=== PATIENT | male | born 1940 | race Caucasian/White ===

== ENCOUNTER → 2023-05-22 11:04 | Outpatient (CLI) | payer MEDICARE, OTHER, SELFPAY ==
--- NOTE | 2023-05-22 11:06 | DI.RAD.S_ITS ---
PROCEDURE: XR CHEST 2V INDICATIONS: Cough TECHNIQUE: 2 views of the chest were acquired. COMPARISON: [facility], CHEST 2 VIEW, 06/28/2015, 18:17. [facility], CHEST 1 VIEW, 09/17/2014, 21:52. FINDINGS: Surgical changes and devices: Clavicle fixation hardware Lungs and pleura: Lungs are clear. No pleural effusions or pneumothorax. Mediastinum: Visible on lateral projection only is a ovoid opacity projecting over the lower thoracic spine.. Heart size is normal. Bones and chest wall: No suspicious bony abnormalities. Soft tissues appear unremarkable. IMPRESSION: No acute cardiopulmonary process. Redemonstration of ovoid opacity projecting over the lower thoracic spine, similar appearance to prior. Dictated by: Darshan Freire M.D. on 05/22/2023 at 12:55 Approved by: Darshan Freire M.D. on 05/22/2023 at 12:58
== END ==
PROVIDERS: Referring Provider Nurse Practitioner Family; Visit Provider Nurse Practitioner Family
DX: R05.9 Cough, unspecified (principal)
CPT/HCPCS: 71046

== ENCOUNTER → 2023-05-22 11:06 | Outpatient (CLI) | payer MEDICARE, OTHER, SELFPAY ==
[2023-05-22 11:54] LABS: COVID-19 CEPHEID 4-PLEX PCR POSITIVE (Negative); Influenza A - CEPHEID Flu A NEGATIVE (NEGATIVE); Influenza B - CEPHEID Flu B NEGATIVE (NEGATIVE); Respiratory Syncytial Virus Negative (Negative)
== END ==
PROVIDERS: Visit Provider Nurse Practitioner Family
DX: R05.9 Cough, unspecified (principal)
CPT/HCPCS: 0241U; 71046; 87070

== ENCOUNTER 2024-03-06 12:14 | Emergency (ER) | payer MEDICARE, OTHER, SELFPAY ==
[2024-03-06] VITALS (21 sets, daily range): BP systolic 148–198; BP diastolic 72–94; PULSE 39–49; RESP 9–21; TEMP 36.2; O2SAT 91–98; BMI 26.4
--- NOTE | 2024-03-06 12:27 | DI.CT.S_ITS ---
PROCEDURE: CT HEAD/BRAIN WO CON INDICATIONS: double vision yesterday,no sx today,not TPA candidate TECHNIQUE: Noncontrast 4.5 mm thick angled axial sections acquired from the foramen magnum to the vertex, with coronal and sagittal reformats. For radiation dose reduction, the following was used: automated exposure control, adjustment of mA and/or kV according to patient size. COMPARISON: None. FINDINGS: Image quality: Diagnostic. CSF spaces: Basal cisterns are patent. No extra-axial fluid collections. The ventricles are symmetric in size and shape. Brain: No intracranial bleeds or masses. There is cerebral volume loss for age, with resultant ventricular and sulcal prominence. There are periventricular and deep white matter chronic small vessel ischemic changes. There is intracranial internal carotid artery atherosclerosis. Skull and face: Calvarium and visualized facial bones appear intact, without suspicious lesions. Sinuses: Visualized sinuses and mastoids are clear. IMPRESSION: No acute intracranial pathology. Dictated by: Alex Agarwal M.D. on 03/06/2024 at 13:31 Approved by: Alex Agarwal M.D. on 03/06/2024 at 13:31
--- NOTE | 2024-03-06 12:27 | DI.CT.S_ITS ---
PROCEDURE: CT ANGIO HEAD AND NECK INDICATIONS: double vision yesterday,no sx today,not TPA candidate TECHNIQUE: After the administration of intravenous contrast, 1 mm thick sections acquired from the aortic arch through the [place]. 3-dimensional vedfbav-wvnrnxpuc-nburgtfxqn (MIP) and/or volume rendering reformats were acquired of the central intracranial vasculature and neck separately. For radiation dose reduction, the following was used: automated exposure control, adjustment of mA and/or kV according to patient size. COMPARISON: [facility], CT, CT ANGIO HEAD AND NECK, 06/16/2022, 12:03. [facility], CT, CT HEAD/BRAIN WO CON, 03/06/2024, 12:31. FINDINGS: Image quality: Diagnostic. BRAIN: CSF spaces: Ventricles are normal in size and shape. Basal cisterns are patent. No extra-axial fluid collections. Brain: No significant abnormality of the brain can be seen. Skull and face: Calvarium and facial bones appear intact, without suspicious lesions. Orbits appear normal. Sinuses: Sinuses and mastoids are clear. HEAD CT ANGIOGRAPHY: Anterior circulation: Intracranial internal carotid arteries are normal in size and flow. The flow within the paired anterior cerebral arteries is normal and symmetric. The flow within the middle cerebral arteries is normal and symmetric. The anterior communicating artery is seen. No aneurysms are seen. Posterior circulation: Somewhat diminutive right vertebral artery and dominant left vertebral artery as before. They join to give rise to a normal caliber basilar artery. Flow within the posterior cerebral arteries is normal and symmetric. No aneurysms are seen. NECK CT ANGIOGRAPHY: Carotid system: Variant arch anatomy in which there is aberrant origin of the right subclavian. There is also independent origin left vertebral artery arch. Great vessel origins are all widely patent. The origins of the common carotid arteries appear patent. The common carotid arteries demonstrate normal caliber and courses. Soft plaque results in a mild stenosis the distal right common carotid artery, not flow limiting. There is is a severe proximal right external iliac artery stenosis. The right internal carotid artery is patent. There is a densely calcified carotid bifurcation with a moderate to severe stenosis just proximal to the origin the left internal carotid, approximately 50%. There is no significant right internal carotid artery stenosis. Posterior circulation: Somewhat diminutive right vertebral artery and dominant left vertebral artery as before. They join to give rise to a normal caliber basilar artery. Soft tissues: Visualized neck soft tissues demonstrate no suspicious abnormalities. Bones: No suspicious bony lesions. Diffuse cervical spondylitic change. Canal stenosis C4-C5. Multilevel bony foraminal narrowing. IMPRESSION: No significant intracranial arterial abnormality is seen. 60% left carotid bifurcations stenosis. Mild distal right common carotid artery stenosis secondary to soft plaque. Diffuse cervical spondylosis with canal stenosis. 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 Any quantitative measurements of stenosis were performed using NASCET criteria. Dictated by: Matt Siegel M.D. on 03/06/2024 at 13:22 Approved by: Matt Siegel M.D. on 03/06/2024 at 13:28
--- NOTE | 2024-03-06 12:46 | PC.NURSE ---
States he was driving when he suddenly had double vision; pt went to eye doctor today who stated they believe he has a nerve issue but needs to be seen in ER to rule out stroke/mini stroke
[2024-03-06 12:54] LABS: Add Manual Diff / Slide Review NO; Basophils Absolute Auto 0 /uL (0-100); Basophils Percent Auto 0.4 % (0-2); Eosinophils Absolute Auto 100 /uL (0-450); Hematocrit 47.2 % (41-53); Hemoglobin 16.2 g/dL (13.5-17.5); Lymphocytes Absolute Auto 2000 /uL (1100-4500); Lymphocytes Percent Auto 29.1 % (25-40); Mean Corpuscular HGB Conc 34.3 % (30-36); Mean Corpuscular Hemoglobin 32.1 PG (26-34); Mean Corpuscular Volume 93.5 fL (80-100); Monocytes Absolute Auto 600 /uL (0-900); Monocytes Percent Auto 9.1 % (3-14); Neutrophils Absolute Auto 4200 /uL (1500-7000); Neutrophils Percent Auto 60.4 % (50-75); Platelet Count 211 X10^3/uL (150-400); Red Blood Cell Count 5.05 X10^6/uL (4.5-5.9); Red Cell Distribution Width 13.4 % (11.6-14.8)
[2024-03-06 12:56] LABS: INR 1.1 (0.9-1.3); Prothrombin Time 12.1 SECONDS (9.4-12.5)
[2024-03-06 12:58] LABS: PTT Partial Thromboplastin Tim 36 SECONDS (25.1-36.5)
[2024-03-06 13:00] LABS: Alanine Aminotransferase 26 IU/L (<50); Albumin 4.2 g/dL (3.5-5.0); Albumin Globulin Ratio 1.4 (1.0-2.8); Alkaline Phosphatase 90 U/L (38-126); Aspartate Aminotransferase 36 IU/L (17-59); BUN Creatinine Ratio 16.9 (6-22); Blood Urea Nitrogen 15 mg/dL (9-20); Calcium 9.2 mg/dL (8.4-10.2); Carbon Dioxide 23 mmol/L (22-32); Chloride 108 mmol/L (98-107); Creatine Kinase 191 U/L (55-170); Estimated Glomerular Filt Rate > 60 mL/min (>60); Globulin 3.1 g/dL (1.7-4.1); Glucose 96 mg/dL (80-110); HEMOLYSIS < 15 (0-50); Potassium 4.2 mmol/L (3.4-5.1); Sodium 137 mmol/L (137-145); Total Protein 7.3 g/dL (6.3-8.2)
[2024-03-06 13:12] LABS: Troponin I < 0.012 ng/mL (0.01-0.034)
--- NOTE | 2024-03-06 13:28 | EKG_ITS ---
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
--- NOTE | 2024-03-06 14:13 | ED.NEUROSD ---
HPI - Neuro Symptoms/Deficit General Chief Complaint: Neuro Symptoms/Deficit Stated Complaint: sent by [facility], r/o aneurism Time Seen by Provider: 03/06/24 14:13 Source: patient Mode of arrival: Ambulatory History of Present Illness HPI Narrative: 83-year-old male complains of double vision episode onset at rest 5:30 p.m. yesterday, lasted about 3 hours and then resolved without specific treatments or maneuvers. No associated headache. No weakness to face arm or leg. No numbness to face arm or leg. He went to eye clinic today, was referred for stroke workup imaging here. Denies chest pain. Denies changes in medications. On Anticoagulants: No Related Data Previous Rx's Medication Instructions Recorded benzonatate 200 mg capsule 200 mg PO BID PRN cough #28 caps 05/22/23 fluticasone propionate 50 1 spray intranasal Q12H #16 grams 05/22/23 mcg/actuation nasal spray,suspension (Flonase Allergy Relief) Allergies Allergy/AdvReac Type Severity Reaction Status Date / Time adhesive tape [ADHESIVE TAPE] Allergy Mild RASH---PAPER Verified 03/06/24 12:17 OR SILK TAPE IS OK squash [SQUASH] Allergy Mild RASH Verified 03/06/24 12:17 Review of Systems Hematologic/Lymphatic On Anticoagulants: No Patient History Social History Smoking Status: Unknown if ever smoked Smoking Status: Unknown if ever smoked Exam Narrative Exam Narrative: GENERAL: Well-developed patient, in mild distress. HEAD: Atraumatic. Normocephalic. EYES: Pupils equal round and reactive. Extraocular motions intact. No scleral icterus. No injection or drainage. ENT: Nose without bleeding, purulent drainage. Throat without erythema, tonsillar hypertrophy or exudate. Airway patent. NECK: Trachea midline. Non tender CARDIOVASCULAR: Regular rate and rhythm without murmurs, gallops, or rubs. RESPIRATORY: Clear to auscultation. Breath sounds equal bilaterally. No wheezes, rales, or rhonchi. GASTROINTESTINAL: Abdomen soft, non-tender, nondistended. EXTREMITIES: No edema or joint tenderness. BACK: Nontender without deformity or crepitance. No flank tenderness. NEURO: AOx3. Motor functions 5/5 bilateral upper extremities and bilateral lower extremities. Cranial nerve examination unremarkable including confrontational nayak, no diplopia on lateral or upward gaze testing. Jdnwdy-gy-[id number] testing normal. Light touch sensation intact face arms legs. SKIN: No rash or erythema of visible areas Initial Vital Signs Initial Vital Signs: Vital Signs Temperature 97.2 F L 03/06/24 12:17 Pulse Rate 49 L 03/06/24 12:17 Respiratory Rate 14 03/06/24 12:17 Blood Pressure 177/80 H 03/06/24 12:17 Pulse Oximetry 96 03/06/24 12:17 Oxygen Delivery Method Room Air 03/06/24 12:17 Course Orders Ordered: ED Orders 03/06/24 12:27 CT angio head and neck Stat CT head/brain wo con Stat EKG-12 Lead Stat 03/06/24 12:36 Complete Blood Count AUTO DIFF Stat Comprehensive Metabolic Panel Stat PTT Partial Thromboplastin Oliver Stat Prothrombin Time INR Stat Troponin & CK Cardiac Panel Stat 03/06/24 15:05 MR head/brain wo con Stat 03/06/24 16:10 Urinalysis and Microscopic Stat Vital Signs Vital signs: Vital Signs - 8 hr 03/06/24 12:17 03/06/24 12:37 03/06/24 12:39 Temperature 97.2 F L Pulse Rate 49 L 43 L 42 L Respiratory Rate 14 Blood Pressure 177/80 H Pulse Oximetry 96 91 98 Oxygen Delivery Method Room Air 03/06/24 12:39 03/06/24 12:59 03/06/24 12:59 Temperature Pulse Rate 40 L Respiratory Rate 12 Blood Pressure 162/83 H 166/80 H Pulse Oximetry 97 Oxygen Delivery Method 03/06/24 13:00 03/06/24 13:00 03/06/24 13:30 Temperature Pulse Rate 40 L Respiratory Rate Blood Pressure 155/78 H 177/87 H Pulse Oximetry 96 Oxygen Delivery Method 03/06/24 13:30 03/06/24 14:00 03/06/24 14:01 Temperature Pulse Rate 42 L 43 L 43 L Respiratory Rate 13 18 Blood Pressure Pulse Oximetry 97 97 95 Oxygen Delivery Method 03/06/24 14:01 03/06/24 14:30 03/06/24 14:31 Temperature Pulse Rate 48 L 43 L Respiratory Rate 20 Blood Pressure 174/89 H Pulse Oximetry 95 95 Oxygen Delivery Method 03/06/24 14:31 03/06/24 15:00 03/06/24 15:01 Temperature Pulse Rate 43 L 45 L Respiratory Rate 15 21 Blood Pressure 151/72 H Pulse Oximetry 96 95 Oxygen Delivery Method 03/06/24 15:01 03/06/24 15:30 03/06/24 15:31 Temperature Pulse Rate 39 L 39 L Respiratory Rate 9 L Blood Pressure 163/77 H Pulse Oximetry 96 96 Oxygen Delivery Method 03/06/24 15:31 03/06/24 16:00 03/06/24 16:00 Temperature Pulse Rate 40 L Respiratory Rate 12 Blood Pressure 162/76 H 148/81 H Pulse Oximetry 96 Oxygen Delivery Method 03/06/24 16:36 03/06/24 16:38 03/06/24 16:38 Temperature Pulse Rate 48 L 44 L Respiratory Rate 17 Blood Pressure 198/94 H Pulse Oximetry 95 Oxygen Delivery Method 03/06/24 17:00 03/06/24 17:01 03/06/24 17:01 Temperature Pulse Rate 45 L 45 L Respiratory Rate 15 21 Blood Pressure 182/84 H Pulse Oximetry 96 96 Oxygen Delivery Method 03/06/24 17:30 03/06/24 17:31 03/06/24 17:31 Temperature Pulse Rate 40 L 40 L Respiratory Rate 20 16 Blood Pressure 178/84 H Pulse Oximetry 96 96 Oxygen Delivery Method MDM - Neuro Symptoms/Deficit Lab Data Attestation: I reviewed the patient's lab results. Lab results narrative: White blood cell count 7000, hemoglobin 16.2, platelets adequate. Basic metabolic panel unremarkable. Glucose 96. Liver functions normal. Troponin negative/unmeasurable 03/06/24 12:36 03/06/24 12:36 Labs: Lab Results 03/06/24 03/06/24 Range/Units 12:36 16:10 WBC 7.0 (4.5-11.0) X10^3/uL RBC 5.05 (4.5-5.9) X10^6/uL Hgb 16.2 (13.5-17.5) g/dL Hct 47.2 (41-53) % MCV 93.5 (80-100) fL MCH 32.1 (26-34) PG MCHC 34.3 (30-36) % RDW 13.4 (11.6-14.8) % Plt Count 211 (150-400) X10^3/uL Neut % (Auto) 60.4 (50-75) % Lymph % (Auto) 29.1 (25-40) % [place] % (Auto) 9.1 (3-14) % Eos % (Auto) 1.0 L (2-4) % Baso % (Auto) 0.4 (0-2) % Neut # (Auto) 4200 (9425-1598) /uL Lymph # (Auto) 2000 (0608-2642) /uL [place] # (Auto) 600 (0-900) /uL Eos # (Auto) 100 (0-450) /uL Baso # (Auto) 0 (0-100) /uL PT 12.1 (9.4-12.5) SECONDS INR 1.1 (0.9-1.3) APTT 36 (25.1-36.5) SECONDS Sodium 137 (137-145) mmol/L Potassium 4.2 (3.4-5.1) mmol/L Chloride 108 H (98-107) mmol/L Carbon Dioxide 23 (22-32) mmol/L BUN 15 (9-20) mg/dL Creatinine 0.89 (0.66-1.25) mg/dL Estimated GFR > 60 (>60) mL/min BUN/Creatinine Ratio 16.9 (6-22) Glucose 96 (80-110) mg/dL Calcium 9.2 (8.4-10.2) mg/dL Total Bilirubin 1.0 (0.2-1.3) mg/dL AST 36 (17-59) IU/L ALT 26 (<50) IU/L Alkaline Phosphatase 90 (38-126) U/L Total Creatine Kinase 191 H (55-170) U/L Troponin I < 0.012 (0.01-0.034) ng/mL Total Protein 7.3 (6.3-8.2) g/dL Albumin 4.2 (3.5-5.0) g/dL Globulin 3.1 (1.7-4.1) g/dL Albumin/Globulin Ratio 1.4 (1.0-2.8) Urine Color Yellow Urine Appearance Clear Urine pH 7.0 (4.5-8.0) Ur Specific [place] 1.010 (1.000-1.035) Urine Protein Negative (Negative) Urine Glucose (UA) Negative (Negative) g/dL Urine Ketones Negative (NEGATIVE) Urine Occult Blood Negative (Negative) Urine Nitrate Negative (Negative) Urine Bilirubin Negative (NEGATIVE) Urine Urobilinogen 0.2 (0.2) E.U./dL Ur Leukocyte Esterase Negative (NEGATIVE) Urine RBC None seen (0-5/HPF) Urine WBC 0-1/hpf (0-5/HPF) Ur Squamous Epith Cells None seen (0-5/HPF) Urine Bacteria None seen (None) Ur Culture Indicated? Cult not indicated Vol Urine Centrifuged 10ml (spun) Imaging Data CTA - brain/neck: Radiologist's Impression: [address] [address] [address] Scan Report Signed Patient: Erasto Dewey MR#: [id number] : 1940 Acct:[id number] Age/Sex: 83 / M Date of Service: 03/06/24 Loc: ED Accession Number: [id number] Procedure: CT angio head and neck Ordering Provider: Bryce Dent MD PROCEDURE: CT ANGIO HEAD AND NECK INDICATIONS: double vision yesterday,no sx today,not TPA candidate TECHNIQUE: After the administration of intravenous contrast, 1 mm thick sections acquired from the aortic arch through the [place] of [place]. 3-dimensional eqyhond-mveagooql-ibanieuelt (MIP) and/or volume rendering reformats were acquired of the central intracranial vasculature and neck separately. For radiation dose reduction, the following was used: automated exposure control, adjustment of mA and/or kV according to patient size. COMPARISON: [facility], CT, CT ANGIO HEAD AND NECK, 06/16/2022, 12:03. [facility], CT, CT HEAD/BRAIN WO CON, 03/06/2024, 12:31. FINDINGS: Image quality: Diagnostic. BRAIN: CSF spaces: Ventricles are normal in size and shape. Basal cisterns are patent. No extra-axial fluid collections. Brain: No significant abnormality of the brain can be seen. Skull and face: Calvarium and facial bones appear intact, without suspicious lesions. Orbits appear normal. Sinuses: Sinuses and mastoids are clear. HEAD CT ANGIOGRAPHY: Anterior circulation: Intracranial internal carotid arteries are normal in size and flow. The flow within the paired anterior cerebral arteries is normal and symmetric. The flow within the middle cerebral arteries is normal and symmetric. The anterior communicating artery is seen. No aneurysms are seen. Posterior circulation: Somewhat diminutive right vertebral artery and dominant left vertebral artery as before. They join to give rise to a normal caliber basilar artery. Flow within the posterior cerebral arteries is normal and symmetric. No aneurysms are seen. NECK CT ANGIOGRAPHY: Carotid system: Variant arch anatomy in which there is aberrant origin of the right subclavian. There is also independent origin left vertebral artery arch. Great vessel origins are all widely patent. The origins of the common carotid arteries appear patent. The common carotid arteries demonstrate normal caliber and courses. Soft plaque results in a mild stenosis the distal right common carotid artery, not flow limiting. There is is a severe proximal right external iliac artery stenosis. The right internal carotid artery is patent. There is a densely calcified carotid bifurcation with a moderate to severe stenosis just proximal to the origin the left internal carotid, approximately 50%. There is no significant right internal carotid artery stenosis. Posterior circulation: Somewhat diminutive right vertebral artery and dominant left vertebral artery as before. They join to give rise to a normal caliber basilar artery. Soft tissues: Visualized neck soft tissues demonstrate no suspicious abnormalities. Bones: No suspicious bony lesions. Diffuse cervical spondylitic change. Canal stenosis C4-C5. Multilevel bony foraminal narrowing. IMPRESSION: No significant intracranial arterial abnormality is seen. 60% left carotid bifurcations stenosis. Mild distal right common carotid artery stenosis secondary to soft plaque. Diffuse cervical spondylosis with canal stenosis. 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 Any quantitative measurements of stenosis were performed using NASCET criteria. Dictated by: Matt Siegel M.D. on 03/06/2024 at 13:22 Approved by: Matt Siegel M.D. on 03/06/2024 at 13:28 CT scan - head: Radiologist's Impression: Close Head CT (Signed) Alex Agarwal - 03/06/24 Head/Neck CTA (Signed) Matt Siegel - 03/06/24 Launch?[address] [address] [address] Scan Report Signed Patient: Erasto Dewey MR#: [id number] : 1940 Acct:[id number] Age/Sex: 83 / M Date of Service: 03/06/24 Loc: ED Accession Number: [id number] Procedure: CT head/brain wo con Ordering Provider: Bryce Dent MD PROCEDURE: CT HEAD/BRAIN WO CON INDICATIONS: double vision yesterday,no sx today,not TPA candidate TECHNIQUE: Noncontrast 4.5 mm thick angled axial sections acquired from the foramen magnum to the vertex, with coronal and sagittal reformats. For radiation dose reduction, the following was used: automated exposure control, adjustment of mA and/or kV according to patient size. COMPARISON: None. FINDINGS: Image quality: Diagnostic. CSF spaces: Basal cisterns are patent. No extra-axial fluid collections. The ventricles are symmetric in size and shape. Brain: No intracranial bleeds or masses. There is cerebral volume loss for age, with resultant ventricular and sulcal prominence. There are periventricular and deep white matter chronic small vessel ischemic changes. There is intracranial internal carotid artery atherosclerosis. Skull and face: Calvarium and visualized facial bones appear intact, without suspicious lesions. Sinuses: Visualized sinuses and mastoids are clear. IMPRESSION: No acute intracranial pathology. Dictated by: Alex Agarwal M.D. on 03/06/2024 at 13:31 Approved by: Alex Agarwal M.D. on 03/06/2024 at 13:31 MRI brain: Radiologist's Impression: [place] [address] Magnetic Resonance Report Signed Patient: Erasto Dewey MR#: [id number] : 1940 Acct:[id number] Age/Sex: 83 / M Date of Service: 03/06/24 Loc: ED Accession Number: [id number] Procedure: MR head/brain wo con Ordering Provider: Bryce Dent MD PROCEDURE: MR HEAD/BRAIN WO CON INDICATIONS: diplopia; eval for stroke TECHNIQUE: Non-contrast axial T1 spin echo, axial T2 fast spin echo, sagittal and axial FLAIR, coronal T2 fast spin echo, axial gradient echo, axial diffusion and ADC through the brain. COMPARISON: None. FINDINGS: Image quality: Excellent. CSF spaces: Ventricles appear symmetric in size and shape. Basal cisterns are patent. No extra-axial fluid collections. Brain: No intracranial bleeds or mass effects. There is cerebral volume loss for age. There are periventricular and deep white matter chronic small vessel ischemic changes. Brainstem appears normal. Diffusion-weighted images show no acute infarct. There is very minimal deep white matter periventricular change, within normal limits for patient age. There is a single focal area of T2 signal abnormality, well seen on axial T2 FLAIR image 11 of series 7 and sagittal T2 FLAIR image 6 of series 5. An area of T2 hyper intensity measuring approximately 1.6 x 1.2 cm is centered in the right temporal deep white matter/sandoval-white junction region. It may represent encephalomalacia from remote small infarct. Also possible is glioma. Normal intravascular flow voids are present. Skull and face: Calvarial bone marrow is normal in signal. Orbits are normal. Sinuses: Sinuses and mastoids are clear. IMPRESSION: 1. There is no acute infarct. 2. There is a single focal area of T2 signal abnormality in the right temporal deep white matter/sandoval-white junction region. 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 However, cannot exclude glioma. Comment: Recommend short-term follow-up MRI with and without contrast in 6-12 weeks. Dictated by: Matt Siegel M.D. on 03/06/2024 at 16:59 Approved by: Matt Siegel M.D. on 03/06/2024 at 17:04 ECG Data Attestation: I personally reviewed and interpreted this ECG as follows: Interpretation: 1328, Sinus bradycardia with rate of 40, no obvious ST segment elevation or depression changes. Flat T-waves lead 3 noted. AK 124, QRS 94, QTC 412. [facility] Narrative Medical decision making narrative: 83-year-old male with double vision episode lasting 3 hours yesterday evening, saw eye clinic provider today, referred for imaging. No recurrence of symptoms, no other neurological symptoms. CT head noncontrast, CT angiogram head and neck vessels ordered. Labs pending. CT head noncontrast, no acute changes. See radiology report. GFR favorable. CT angiogram head and neck vessels ordered CTA head and neck vessels. Impressions: ?No significant intracranial arterial abnormality is seen. 60% left carotid bifurcations stenosis. Right distal common carotid artery stenosis secondary to soft plaque. Diffuse cervical spondylosis with canal stenosis. 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 See radiology report MRI brain study ordered, can be worked in at 6:00 p.m. per technical writer, patient would like to stay for the study MRI brain shows no acute infarct. There is a small focal area right temporal deep white matter sandoval white junction region that might be in area of encephalomalacia from previous infarct, versus glioma. See radiology report. Copy of report given to the patient. Copy of all CT/CTA/MRI reports given to patient, advised to take an aspirin daily for now. Follow-up early next week with Eye Clinic and with PCP for further workup as outpatient for now. Return precautions discussed Discharge Plan Departure Patient Disposition: Home Clinical Impression: Diplopia Activity Restrictions/Additional Instructions: Double vision episode for 3 hours duration yesterday afternoon, presenting to eye clinic today who referred you here for further evaluation to make sure there is no stroke. No further diplopia since yesterday. Reassuring examination today. CT head without contrast was negative. CT angiogram of the head and the neck vessels showed some narrowing of the carotid artery but not to a critical interventional Re at this time, we will need further follow up as an outpatient for now. MRI brain study showed no acute stroke changes, which sometimes can be seen on CT scans that are negative, no acute changes however noted today. There was an area in the right temporal region that might represent a small area of an old stroke versus a small glioma. Further follow up as an outpatient recommended for now. Take aspirin daily for now. Follow up with your eye doctor on Saturday. Follow up with your primary care doctor for follow up issues noted above. Copies of your CT and MRI reports provided. Return earlier to this/nearest emergency department for any change worsening symptoms or any concerns prior Prescriptions: No Action fluticasone propionate [Flonase Allergy Relief] 50 mcg/actuation spray,suspension 1 spray intranasal Q12H Qty: 16 0RF Rx Instructions: administer into each nostril benzonatate 200 mg capsule 200 mg PO BID PRN (Reason: cough) Qty: 28 0RF Referrals: Miscellaneous,Doctor, MD [Primary Care Provider] - Stand Alone Forms: Patient Portal/API/Survey
--- NOTE | 2024-03-06 15:05 | DI.MRI.S_ITS ---
PROCEDURE: MR HEAD/BRAIN WO CON INDICATIONS: diplopia; eval for stroke TECHNIQUE: Non-contrast axial T1 spin echo, axial T2 fast spin echo, sagittal and axial FLAIR, coronal T2 fast spin echo, axial gradient echo, axial diffusion and ADC through the brain. COMPARISON: None. FINDINGS: Image quality: Excellent. CSF spaces: Ventricles appear symmetric in size and shape. Basal cisterns are patent. No extra-axial fluid collections. Brain: No intracranial bleeds or mass effects. There is cerebral volume loss for age. There are periventricular and deep white matter chronic small vessel ischemic changes. Brainstem appears normal. Diffusion-weighted images show no acute infarct. There is very minimal deep white matter periventricular change, within normal limits for patient age. There is a single focal area of T2 signal abnormality, well seen on axial T2 FLAIR image 11 of series 7 and sagittal T2 FLAIR image 6 of series 5. An area of T2 hyper intensity measuring approximately 1.6 x 1.2 cm is centered in the right temporal deep white matter/sandoval-white junction region. It may represent encephalomalacia from remote small infarct. Also possible is glioma. Normal intravascular flow voids are present. Skull and face: Calvarial bone marrow is normal in signal. Orbits are normal. Sinuses: Sinuses and mastoids are clear. IMPRESSION: 1. There is no acute infarct. 2. There is a single focal area of T2 signal abnormality in the right temporal deep white matter/sandoval-white junction region. 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 However, cannot exclude glioma. Comment: Recommend short-term follow-up MRI with and without contrast in 6-12 weeks. Dictated by: Matt Siegel M.D. on 03/06/2024 at 16:59 Approved by: Matt Siegel M.D. on 03/06/2024 at 17:04
[2024-03-06 16:17] LABS: Appearance Urine UA CLEAR; Bilirubin Urine UA NEGATIVE (NEGATIVE); Color Urine UA YELLOW; Glucose Urine UA NEGATIVE (Negative); Ketones Urine UA NEGATIVE (NEGATIVE); Leukocyte Esterase Urine UA NEGATIVE (NEGATIVE); Nitrite Urine UA NEGATIVE (Negative); Occult Blood Urine UA NEGATIVE (Negative); Protein Urine UA NEGATIVE (Negative); Urobilinogen Urine UA 0.2 E.U./dL (0.2)
[2024-03-06 16:44] LABS: Bacteria Urine None Seen; Culture Indicated Urine Cult Not Indicated; RBC Urine None Seen (0-5/HPF); Squamous Epithelial Cell Urine None Seen (0-5/HPF); Urine Volume 10mL (spun); WBC Urine 0-1/HPF (0-5/HPF)
== END 2024-03-06 18:06 | disposition home or self-care (01) ==
PROVIDERS: Emergency Provider Emergency Medicine
DX: H53.2 Diplopia (principal); I65.23 Occlusion and stenosis of bilateral carotid arteries
CPT/HCPCS: 36415; 70450; 70496; 70498; 70551; 80053; 81001; 82550; 84484; 85025; 85610; 85730; 93005; 99284; Q9967

== ENCOUNTER → 2024-04-17 07:03 | Outpatient (CLI) | payer MEDICARE, OTHER, SELFPAY ==
--- NOTE | 2024-04-17 07:04 | DI.MRI.S_ITS ---
PROCEDURE: MR HEAD/BRAIN WO/W CON INDICATIONS: f/u last MRI (03/06/24); encephalomalacia vs glioma TECHNIQUE: Noncontrast axial T1 spin echo, axial T2 fast spin echo, sagittal and axial FLAIR, coronal T2 fast spin echo, axial gradient echo, axial diffusion and ADC through the brain. After the administration of contrast, axial and coronal and sagittal T1 spin echo with fat saturation through the brain. COMPARISON: [facility], MR, MR HEAD/BRAIN WO CON, 03/06/2024, 16:12. FINDINGS: Image quality: Excellent. CSF spaces: Basal cisterns are patent. No extra-axial fluid collections. Ventricles are normal in size and shape. Brain: Again seen prominent focus of T2/FLAIR hyperintense signal within the right temporal white matter abutting the sandoval-white junction measuring approximately 1.6 x 1.1 cm, similar to prior. There is no associated enhancement. There is associated decreased T1 signal. No midline shift. No intracranial bleeds or masses. No abnormal intracranial enhancement. There is cerebral volume loss for age. There is periventricular white matter chronic small vessel ischemic change. The brainstem appears normal. Diffusion-weighted images demonstrate no acute infarct. No chronic ischemic insults. Normal intravascular flow voids are present. Skull and face: Calvarial marrow is normal in signal. Bilateral lens replacements. Otherwise, the orbits are unremarkable. Sinuses: Maxillary sinus mucous retention cysts. Sinuses and mastoids otherwise appear clear. IMPRESSION: Stable appearance of prominent focus of T2/FLAIR hyperintense signal within the right temporal lobe white matter abutting the sandoval-white junction. There is no associated enhancement. Differential again includes encephalomalacia from prior insult. Low-grade glioma however is not excluded. Recommend 3-6 month follow-up MRI to assess stability. Consider neurology consultation. Otherwise, no acute intracranial abnormalities or abnormal intracranial enhancement. Dictated by: Darshan Freire M.D. on 04/17/2024 at 15:36 Approved by: Darshan Freire M.D. on 04/17/2024 at 15:43
[2024-04-17 12:08] LABS: Cholesterol 176 mg/dL (140-199); HDL Cholesterol 56 mg/dL (40-60); LDL Cholesterol Calculated 105 mg/dL (<100); Triglycerides 76 mg/dL (35-150)
== END ==
PROVIDERS: PCP Family Medicine; Referring Provider Family Medicine; Visit Provider Family Medicine
DX: R90.89 Other abnormal findings on diagnostic imaging of central nervous system (principal); G93.89 Other specified disorders of brain; H53.2 Diplopia; Z86.73 Personal history of transient ischemic attack (TIA), and cerebral infarction without residual deficits; Z86.79 Personal history of other diseases of the circulatory system; Z13.220 Encounter for screening for lipoid disorders
CPT/HCPCS: 36415; 70553; 80061; A9579

== ENCOUNTER 2024-09-16 12:39 | Inpatient (IN) | payer MEDICARE, OTHER, SELFPAY ==
[2024-09-16] VITALS (13 sets, daily range): BP systolic 107–162; BP diastolic 51–73; PULSE 40–47; RESP 11–26; TEMP 36.3–36.6; O2SAT 92–99; BMI 23.1
--- NOTE | 2024-09-16 12:58 | DI.RAD.S_ITS ---
PROCEDURE: XR HIP W PEL IF DONE LT 2V INDICATIONS: L hip pain TECHNIQUE: AP pelvis with lateral view(s) of the left hip(s). COMPARISON: None. FINDINGS: Bones: Mildly displaced intertrochanteric fracture of the left hip. No dislocation.. Pelvic ring appears intact. No suspicious bony lesions. Soft tissues: The visualized bowel gas pattern is normal. No suspicious soft tissue calcifications. IMPRESSION: Mildly displaced intertrochanteric fracture of the left hip. Dictated by: Matt Siegel M.D. on 09/16/2024 at 14:19 Approved by: Matt Siegel M.D. on 09/16/2024 at 14:19
--- NOTE | 2024-09-16 12:58 | DI.RAD.S_ITS ---
PROCEDURE: XR CHEST 1V INDICATIONS: fall, +LOC TECHNIQUE: One view of the chest was acquired. COMPARISON: [facility], CR, XR CHEST 2V, 05/22/2023, 11:15. FINDINGS: Surgical changes and devices: Surgical hardware related to remote left clavicle ORIF, unchanged in appearance. Lungs and pleura: Lungs are clear. No pleural effusions or pneumothorax. Mediastinum: Mediastinal contours appear normal. Heart size is normal. Bones and chest wall: No suspicious bony lesions. Overlying soft tissues appear unremarkable. IMPRESSION: No acute cardiopulmonary abnormality is seen. Dictated by: Matt Siegel M.D. on 09/16/2024 at 14:17 Approved by: Matt Siegel M.D. on 09/16/2024 at 14:18
--- NOTE | 2024-09-16 12:58 | ED.TRAUMA ---
HPI - Trauma General Chief Complaint: Trauma Stated Complaint: fall/modified trauma Time Seen by Provider: 09/16/24 12:47 Source: patient, EMS, RN notes reviewed and old records reviewed Mode of arrival: EMS Limitations: no limitations History of Present Illness HPI narrative: 84-year-old male history of hypertension on aspirin 81 mg daily. Patient was pressure washing his deck fell down about 5 stairs does not recall exactly what happened but woke up at the bottom of the stairs. Did hit his head has a laceration and abrasion to the forehead and forearm as well as complaint of left hip pain. Patient states his head hurts a little bit but no severe headaches. He denies any midline neck or back pain. Denies any chest pain, denies any shortness of breath. Denies any abdominal back or flank pain. He notes left hip pain with any kind of movement. Patient denies numbness tingling or weakness. Notes some abrasions to his arm and a cut on his. Patient states he felt fine before this occurred. Denies any nausea or vomiting no other GI or urinary symptoms. No incontinence. Patient denies any prior surgeries. Former smoker, denies any regular alcohol, denies recreational drugs. Patient was noted to be bradycardic by EMS but patient states this is his baseline. Related Data Home Medications ?Medication ?Instructions ?Recorded ?Confirmed latanoprost 0.005 % eye drops 1 drp EYE-BOTH ONCE PM 03/30/24 07/24/24 aspirin 81 mg tablet,delayed 81 mg PO DAILY 04/17/24 07/24/24 release Previous Rx's ?Medication ?Instructions ?Recorded losartan 25 mg tablet 25 mg PO DAILY #60 tabs 04/17/24 Allergies Allergy/AdvReac Type Severity Reaction Status Date / Time adhesive tape (ADHESIVE TAPE) Allergy Mild RASH---PAPER Verified 09/16/24 12:47 OR SILK TAPE IS OK squash (SQUASH) Allergy Mild RASH Verified 09/16/24 12:47 Review of Systems Review of Systems ROS Unobtainable: All systems reviewed & are unremarkable except as noted in HPI and below Patient History Medical History (Updated 09/16/24 @ 15:40 by Basia Cueto DO) Former smoker 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 Patient appears in mild distress. HEAD: Patient has a laceration, proximally 3 cm linear on the left temporal, no raccoon/Mosquera sign. NECK: Nontender, painless range of motion, trachea midline Positive Nexus criteria, no midline line tenderness, positive for distracting injury, no altered mental status, neuro deficit, recent EtOH. EYES: PERRLA, EOMI ENT: See above, trachea is midline, TM's are normal no hemotypanum, Nares are clear, no septal hematoma, no dental or oral injury, airway is normal and with normal occlusion, No bony tenderness RESP: Chest is nontender and has symmetric movement, no ecchymosis, breath sounds are normal no crackles, wheezes or rales CVS: Heart sounds are normal, no murmur noted, No JVD. ABG/GI: Nontender, soft, normal bowel sounds, no distention, no organomegaly, pelvic rock is negative NEURO: Oriented AOx3, neuro is grossly intact, sensation and motor is normal all 4 extremities moving, cranial nerves II through XII are intact, GCS is 15 PSYCH: Normal mood and affect SKIN: Abrasion of the arm, warm and dry, no crepitus and without decubitus BACK: No CVA tenderness, no vertebral tenderness, no step-off's, no crepitus EXT: Patient has a abrasion on the forearm, no bony tenderness of the upper extremities, patient has tenderness over the left greater trochanter. Increased pain with any sort of movement left trochanter and increased pain in the left hip with lift of the right. No bony tenderness of the right hip or lower extremity. No tenderness of the left knee, calf, heel or foot. 2+ dorsalis pedis bilaterally. Normal sensation throughout all 4 extremities. No pedal edema, normal color and temperature. Initial Vital Signs Initial Vital Signs: Vital Signs Pulse Rate 42 L 09/16/24 12:41 Blood Pressure 162/73 H 09/16/24 12:41 Pulse Oximetry 96 09/16/24 12:41 Procedures Laceration Repair Laceration 1: Site: scalp Side (If applicable): left Size (cm): 3 Description: linear and irregular Depth: simple, single layer Local Anesthetic: lidocaine 2% Amount of anesthesia used (mL): 5 Pre-repair: wound explored, irrigated extensively and deep structures intact Skin layer closed with: tonya (#6) Scores Citizen [place] CT Head Rule Age <16 years old: No Patient on blood thinners: Yes Seizure after injury: No Exclusion: Patient meets exclusion criteria GCS < 15 at 2 hr post trauma: No Suspected open or depressed skull fracture: No Any sign of basilar skull fracture (hemotympanum, raccoon eyes, Mosquera's sign, CSF steve-/rhinorrhea): No Two or more episodes of vomiting: No Age greater or equal to 65 years: Yes Retrograde amnesia to the event greater or equal to 30 min: No Dangerous Mechanism (pedestrian vs. mv, occupant ejected from mv, fall from >3 ft or > 5 stairs): Yes (+LOC, fell down 5 steps.) Recommendation: Consider CT. The Citizen [place] Head CT Rule cannot rule out need for Imaging. GCS Chi coma scale eye opening: Spontaneous Chi coma scale verbal response: Orientated Wheelwright coma scale motor response: Obey commands Wheelwright coma scale total score: 15 Nexus Score for C-Spine Focal Neurologic deficit present: No Midline spinal tenderness present: No Altered level of conciousness present: No Intoxication present: No Distracting Injury Present: Yes Nexus Criteria for C-spine: 1 Course Orders Ordered: ED Orders 09/16/24 12:25 Complete Blood Count AUTO DIFF Stat Comprehensive Metabolic Panel Stat Ethanol (ETOH) Stat Lipase Stat PTT Partial Thromboplastin Oliver Stat Prothrombin Time INR Stat 09/16/24 12:58 XR chest 1V Stat XR hip w pel LT 2V Stat Urine Drug Screen, Rapid Stat EKG-12 Lead Stat 09/16/24 12:59 CT cervical spine wo con Stat CT head/brain wo con Stat 09/16/24 13:51 Lactate (Lactic Acid) Stat Type and Screen Stat 09/17/24 Complete Blood Count AUTO DIFF Routine Acetaminophen (Acetaminophen 325 Mg Tablet) 650 mg PO Q6H PRN PRN Reason: Fever/Mild Pain (1-3) Hydrocodone Bitart/Acetaminophen (Hydrocodone/Acet 5/325 Tablet) 1 tab PO Q4H PRN PRN Reason: Pain, Moderate (4-6) Aspirin (Aspirin Ec 81 Mg Tablet) 81 mg PO DAILY KRISTA Hydromorphone HCl (Hydromorphone 2 Mg Tablet) 4 mg PO Q4HR PRN PRN Reason: Pain, Severe (7-10) Dextrose/Sodium Chloride (Dextrose 5%-0.45% Ns) 1,000 mls @ 100 mls/hr IV CONT KRISTA Latanoprost (Latanoprost 0.005% Ophth 2.5 Ml) 1 drops EYE-BOTH BEDTIME KRISTA Losartan Potassium (Losartan 25 Mg Tablet) 25 mg PO DAILY KRISTA Naloxone HCl (Naloxone 0.4 Mg/Ml Vial) 0.2 mg IV Q2MIN PRN PRN Reason: Opiate Reversal Ondansetron HCl (Ondansetron 4 Mg/2 Ml Inj) 4 mg IV Q8HR PRN PRN Reason: Nausea And Vomiting Sennosides (Sennosides 8.6 Mg Tablet) 17.2 mg PO BEDTIME KRISTA Discontinued Medications Diphtheria/Tetanus/Acell Pertussis (Tet,Diph,Pertuss(Acell),Vac/Pf 0.5 Ml Syringe) 0.5 ml IM .ONCE ONE Stop: 09/16/24 12:59 Last Admin: 09/16/24 13:10 Dose: 0.5 ml Documented By: Hydromorphone HCl (Hydromorphone 1 Mg Inj) 1 mg IV NOW ONE Stop: 09/16/24 13:40 Last Admin: 09/16/24 13:45 Dose: 1 mg Documented By: Hydromorphone HCl (Hydromorphone 1 Mg Inj) 1 mg IV NOW ONE Stop: 09/16/24 14:22 Last Admin: 09/16/24 14:26 Dose: 1 mg Documented By: Morphine Sulfate (Morphine 4 Mg/Ml Inj) 4 mg IV NOW ONE Stop: 09/16/24 13:01 Last Admin: 09/16/24 13:06 Dose: 4 mg Documented By: Vital Signs Vital signs: Vital Signs - 8 hr 09/16/24 12:41 09/16/24 12:41 09/16/24 12:46 Temperature 97.4 F L Pulse Rate 42 L 40 L Respiratory Rate 16 Blood Pressure 162/73 H 162/73 H Pulse Oximetry 96 98 Oxygen Delivery Method Room Air 09/16/24 13:02 09/16/24 13:02 09/16/24 13:31 Temperature Pulse Rate 47 L 42 L Respiratory Rate 21 Blood Pressure 137/67 Pulse Oximetry 99 Oxygen Delivery Method 09/16/24 13:32 09/16/24 13:32 09/16/24 14:00 Temperature Pulse Rate 42 L Respiratory Rate 21 Blood Pressure 136/63 148/71 H Pulse Oximetry 99 Oxygen Delivery Method 09/16/24 14:00 09/16/24 14:30 09/16/24 14:31 Temperature Pulse Rate 40 L 42 L 42 L Respiratory Rate 12 17 19 Blood Pressure Pulse Oximetry 98 93 94 Oxygen Delivery Method 09/16/24 14:31 09/16/24 15:00 09/16/24 15:00 Temperature Pulse Rate 42 L 46 L Respiratory Rate 16 11 L Blood Pressure 135/63 107/57 L Pulse Oximetry 94 92 Oxygen Delivery Method Room Air MDM - Trauma Lab Data 09/16/24 12:25 09/16/24 12:25 Labs: Lab Results 09/16/24 09/16/24 Range/Units 12:25 13:51 WBC 6.2 (4.5-11.0) X10^3/uL RBC 4.43 L (4.5-5.9) X10^6/uL Hgb 14.5 (13.5-17.5) g/dL Hct 42.1 (41-53) % MCV 95.1 (80-100) fL MCH 32.8 (26-34) PG MCHC 34.5 (30-36) % RDW 13.6 (11.6-14.8) % Plt Count 180 (150-400) X10^3/uL Neut % (Auto) 53.6 (50-75) % Lymph % (Auto) 32.6 (25-40) % [place] % (Auto) 11.0 (3-14) % Eos % (Auto) 1.8 L (2-4) % Baso % (Auto) 1.0 (0-2) % Neut # (Auto) 3300 (6218-9441) /uL Lymph # (Auto) 2000 (6356-4612) /uL [place] # (Auto) 700 (0-900) /uL Eos # (Auto) 100 (0-450) /uL Baso # (Auto) 100 (0-100) /uL PT 12.0 (9.4-12.5) SECONDS INR 1.1 (0.9-1.3) APTT 28 (25.1-36.5) SECONDS Sodium 137 (137-145) mmol/L Potassium 4.0 (3.4-5.1) mmol/L Chloride 106 (98-107) mmol/L Carbon Dioxide 24 (22-32) mmol/L BUN 17 (9-20) mg/dL Creatinine 0.74 (0.66-1.25) mg/dL Estimated GFR > 60 (>60) mL/min BUN/Creatinine Ratio 23.0 H (6-22) Glucose 101 H (70-99) mg/dL Lactate 1.3 (0.7-2.1) mmol/L Calcium 9.3 (8.4-10.2) mg/dL Total Bilirubin 0.8 (0.2-1.3) mg/dL AST 36 (17-59) IU/L ALT 26 (<50) IU/L Alkaline Phosphatase 74 (38-126) U/L Total Protein 7.0 (6.3-8.2) g/dL Albumin 4.2 (3.5-5.0) g/dL Globulin 2.8 (1.7-4.1) g/dL Albumin/Globulin Ratio 1.5 (1.0-2.8) Lipase 70 (23-300) U/L Ethyl Alcohol < 10 (<10) mg/dL Blood Type A Positive Antibody Screen Negative ECG Data Attestation: I personally reviewed and interpreted this ECG as follows: Prior ECG tracings: available for review Interpretation: Marked sinus bradycardia with short OK, rate of 43, OK 92, QRS of 96 QTC 414, no acute ST elevation depression. Prior EKG from 03/06/2024 also shows marked sinus bradycardia with a heart rate of 40. MDM Narrative Medical decision making narrative: 84-year-old male sounds like mechanical trauma but positive loss of consciousness while pressure washing. Blood for head CT CT cervical spine, chest x-ray, patient was left hip pain with any sort of movement or palpation so left hip/pelvis. Labs, EKG were obtained. Activated as a modified trauma. Labs show white count of 6.2 hemoglobin of 14.5 platelets of 180, coags are normal electrolytes BUN creatinine are normal glucose is 101 lactate is pending, LFTs are negative, lipase is 70. ETOH is less than 10 EKG sinus bradycardia short OK rate of 43 OK 182 acute RS of 96 QTC 414. Chest x-ray no acute cardiopulmonary abnormality. Left hip x-ray, prelim appears to show left femoral neck fracture. Head CT no acute intracranial pathology CT cervical spine no displaced fracture or traumatic subluxation. Cervical spondylosis, findings include moderate canal stenosis at C2-C3 and severe canal stenosis C4-C5 as well as multi levels significant bony foraminal narrowing. Patient received morphine, had some improvement also received Dilaudid. Tetanus was updated. Laceration was repaired. Patient tolerated well. Cervical collar cleared. Spoke with Dr. Burns at 1440, accepts for inpatient. Seen by Dr. Burns in the department. Spoke with Dr. Cueto, orthopedic surgery at 1452, will review images and see patient in ED. Seen by Dr. Cueto in the department. Discharge Plan Departure Patient Disposition: Admitted As Inpatient Clinical Impression: Closed hip fracture, Abrasion of elbow, left, Laceration of scalp Admit Date/Time: 09/16/24 15:03 Admit Provider: Raine Burns
--- NOTE | 2024-09-16 12:59 | DI.CT.S_ITS ---
PROCEDURE: CT HEAD/BRAIN WO CON INDICATIONS: fall, +LOC, L hip pain TECHNIQUE: Noncontrast 4.5 mm thick angled axial sections acquired from the foramen magnum to the vertex, with coronal and sagittal reformats. For radiation dose reduction, the following was used: automated exposure control, adjustment of mA and/or kV according to patient size. COMPARISON: [facility], CT, CT HEAD/BRAIN WO CON, 03/06/2024, 12:31. FINDINGS: Image quality: Diagnostic. CSF spaces: Basal cisterns are patent. Small chronic left subdural hygroma. No acute or subacute subdural hematoma. The ventricles are symmetric in size and shape. Brain: No intracranial bleeds or mass effect. There is cerebral volume loss, with resultant ventricular and sulcal prominence. There are periventricular and deep white matter chronic small vessel ischemic changes. 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 There is intracranial internal carotid artery atherosclerosis. Skull and face: Calvarium and visualized facial bones appear intact, without suspicious lesions. Sinuses: Mild sinus disease. Mastoids are clear. IMPRESSION: No acute intracranial pathology. Dictated by: Matt Siegel M.D. on 09/16/2024 at 14:19 Approved by: Matt Siegel M.D. on 09/16/2024 at 14:21
--- NOTE | 2024-09-16 12:59 | DI.CT.S_ITS ---
PROCEDURE: CT CERVICAL SPINE WO CON INDICATIONS: Trauma TECHNIQUE: Noncontrast 3 mm thick sections acquired from the skull base to the T4 level. Sagittal and coronal reformats were then constructed. For radiation dose reduction, the following was used: automated exposure control, adjustment of mA and/or kV according to patient size. COMPARISON: None. FINDINGS: Image quality: Excellent. Bones: No fractures or dislocations. Diffuse cervical spondylitic change. Findings include severe canal stenosis at C4-C5 as well as significant multilevel bony foraminal narrowing. There is at least moderate canal stenosis at C2-C3. There is multilevel facet arthropathy. There is multilevel uncovertebral joint hypertrophy. Visualized superior ribs are intact. Soft tissues: Prevertebral soft tissues are normal in thickness. No paravertebral hematomas. No apical pneumothoraces. IMPRESSION: No displaced fracture or traumatic subluxation. Cervical spondylosis. Findings include moderate canal stenosis at C2-C3 and severe canal stenosis at C4-C5 as well as multilevel significant bony foraminal narrowing. Dictated by: Matt Siegel M.D. on 09/16/2024 at 14:21 Approved by: Matt Siegel M.D. on 09/16/2024 at 14:23
[2024-09-16] MEDS: MORPHINE 4 MG/ML INJ IV (13:06)
--- NOTE | 2024-09-16 13:06 | EKG_ITS ---
[place] [id number] [place] [id number] Test Date: 2024-09-16 Pat Name: Erasto Dewey Department: [facility] Room: Gender: Male Dice Person: KIRAN : 1940 Requested By: Order Number: [id number] Reading MD: Dong Sierra MD Measurements Intervals Felicity Rate: 43 P: 46 IA: 92 QRS: 77 QRSD: 96 T: 75 QT: 490 QTc: 414 Interpretive Statements Marked sinus bradycardia with short IA Electronically Signed On 09-17-2024 7:30:31 PDT by Dong Sierra MD
[2024-09-16] MEDS: TET,DIPH,PERTUSS(ACELL),VAC/PF 0.5 ML SYRINGE IM (13:10)
[2024-09-16 13:11] LABS: INR 1.1 (0.9-1.3); Prothrombin Time 12.0 SECONDS (9.4-12.5)
[2024-09-16 13:12] LABS: Add Manual Diff / Slide Review NO; Hematocrit 42.1 % (41-53); Hemoglobin 14.5 g/dL (13.5-17.5); Lymphocytes Absolute Auto 2000 /uL (1100-4500); Mean Corpuscular HGB Conc 34.5 % (30-36); Mean Corpuscular Hemoglobin 32.8 PG (26-34); Mean Corpuscular Volume 95.1 fL (80-100); Platelet Count 180 X10^3/uL (150-400)
[2024-09-16 13:14] LABS: PTT Partial Thromboplastin Tim 28 SECONDS (25.1-36.5)
[2024-09-16 13:19] LABS: Alanine Aminotransferase 26 IU/L (<50); Albumin 4.2 g/dL (3.5-5.0); Albumin Globulin Ratio 1.5 (1.0-2.8); Alkaline Phosphatase 74 U/L (38-126); Blood Urea Nitrogen 17 mg/dL (9-20); Calcium 9.3 mg/dL (8.4-10.2); Carbon Dioxide 24 mmol/L (22-32); Chloride 106 mmol/L (98-107); Estimated Glomerular Filt Rate > 60 mL/min (>60); Ethanol (ETOH) < 10 mg/dL (<10); Globulin 2.8 g/dL (1.7-4.1); Glucose 101 mg/dL (70-99); HEMOLYSIS < 15 (0-50); Lipase 70 U/L (23-300); Potassium 4.0 mmol/L (3.4-5.1); Sodium 137 mmol/L (137-145); Total Protein 7.0 g/dL (6.3-8.2)
--- NOTE | 2024-09-16 13:38 | PC.NURSE ---
Pt back from CT. Reports that pain is still really bad to left hip. Dr Oliva notified. Verbal order received for 1 mg IV Dilaudid.
[2024-09-16] MEDS: HYDROMORPHONE 1 MG INJ IV ×3 (13:45→23:39)
[2024-09-16 14:13] LABS: Lactate (Lactic Acid) 1.3 mmol/L (0.7-2.1)
--- NOTE | 2024-09-16 14:20 | PC.NURSE ---
Pt continues to have left hip pain. 10/25. Verbal order received by Dr Oliva for 1 mg IV Dilaudid.
--- NOTE | 2024-09-16 14:57 | PM.HP.1 ---
History of Present Illness History of Present Illness Date Patient Seen: 09/16/24 Time Patient Seen: 15:33 Chief complaint: fall/modified trauma Narrative: This is an 84-year-old male with history of hypertension, chronic sinus bradycardia, glaucoma, left carotid stenosis and osteoarthritis who presents to the ED immediately after falling on his deck, down 5 steps, lacerating the left scalp and fracturing the left intertrochanteric hip. The laceration has been sutured. He is scheduled for orthopedic surgery tomorrow. Imaging including brain CT, EKG and labs are reassuring. 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 He will need to be on telemetry as it is unclear whether he experienced the fall as a result of excess bradycardia or some other cause. He was pressure washing his deck when his heard him fall. He has no memory of the fall and was feeling well before that. His next memory is of the paramedics picking him up. He says he has all of his life had asymptomatic bradycardia in the 40s. FORMERLY [facility], 1928–1983 Medical History (Updated 09/16/24 @ 16:03 by Raine Burns MD) Fracture, clavicle Former smoker Status post proximal row carpectomy 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% Hypertension Diplopia Surgical History (Updated 09/16/24 @ 15:38 by Raine Burns MD) History of lumbar laminectomy History of knee replacement procedure of right knee History of knee replacement procedure of left knee H/O carpal tunnel repair Family History (Updated 09/16/24 @ 15:39 by Raine Burns MD) Mother Jaundice Kidney failure Father Fire accident Social History (Updated 09/16/24 @ 15:40 by Raine Burns MD) alcohol intake: current Comment: He drinks 2 bottles of beer after pm daily. Meds Home Medications and Allergies Home Medications ?Medication ?Instructions ?Recorded ?Confirmed ?Type latanoprost 0.005 % eye drops 1 drp EYE-BOTH ONCE PM 03/30/24 07/24/24 History aspirin 81 mg tablet,delayed 81 mg PO DAILY 04/17/24 07/24/24 History release losartan 25 mg tablet 25 mg PO DAILY #60 tabs 04/17/24 07/24/24 Rx Allergies Allergy/AdvReac Type Severity Reaction Status Date / Time adhesive tape (ADHESIVE TAPE) Allergy Mild RASH---PAPER Verified 09/16/24 12:47 OR SILK TAPE IS OK squash (SQUASH) Allergy Mild RASH Verified 09/16/24 12:47 Review of Systems Review of Systems Narrative: Positive for loss of consciousness, fall, bleeding. Negative for fevers, chills, sweats, chest pain, palpitations, nausea, vomiting, abdominal pain, rashes, sore throat, headaches, new allergies. Exam Vital Signs (past 8 hours): - 09/16/24 12:41 09/16/24 12:41 09/16/24 12:46 Temperature 97.4 F L Pulse Rate 42 L 40 L Respiratory Rate 16 Blood Pressure 162/73 H 162/73 H Pulse Oximetry 96 98 Oxygen Delivery Method Room Air 09/16/24 13:02 09/16/24 13:02 09/16/24 13:31 Temperature Pulse Rate 47 L 42 L Respiratory Rate 21 Blood Pressure 137/67 Pulse Oximetry 99 Oxygen Delivery Method 09/16/24 13:32 09/16/24 13:32 09/16/24 14:00 Temperature Pulse Rate 42 L Respiratory Rate 21 Blood Pressure 136/63 148/71 H Pulse Oximetry 99 Oxygen Delivery Method 09/16/24 14:00 09/16/24 14:30 09/16/24 14:31 Temperature Pulse Rate 40 L 42 L 42 L Respiratory Rate 12 17 19 Blood Pressure Pulse Oximetry 98 93 94 Oxygen Delivery Method 09/16/24 14:31 Temperature Pulse Rate 42 L Respiratory Rate 16 Blood Pressure 135/63 Pulse Oximetry 94 Oxygen Delivery Method Room Air Oxygen Delivery Method Room Air Narrative Exam Narrative: Alert and oriented, no apparent distress, mild hearing loss, at bedside answering some questions and correcting him. Underweight. Large hematoma with sutured laceration on the left temporal scalp. Prominent left clavicle angulation, well healed. Pupils are equally round and reactive to light and accommodation. Extraocular muscles are intact. Sclerae are pink and nonicteric There is no thyromegaly No carotid bruits are heard JVD is less than 6 cm Throat looks normal No lymph nodes are felt head, neck, supraclavicular area Heart is bradycardic with regular rhythm. No murmurs are heard. Lungs are clear to auscultation bilaterally Abdomen is soft, bowel sounds positive, nontender, no organomegaly. Left hip is tender. There is no ankle edema Neuro exam: Cranial nerves 2-12 test intact. There is no tremor. Motor function is 5/5 in all extremities. Skin has no rash or jaundice. He does have skin tears on the left elbow and the previously mentioned laceration on the left temporal area. Objective ECG Impression: Sinus bradycardia with a rate of 43 and without signs of heart block. Labs 09/16/24 12:25 09/16/24 12:25 Labs: Laboratory Results - last 24 hr 09/16/24 09/16/24 12:25 13:51 WBC 6.2 RBC 4.43 L Hgb 14.5 Hct 42.1 MCV 95.1 MCH 32.8 MCHC 34.5 RDW 13.6 Plt Count 180 Neut % (Auto) 53.6 Lymph % (Auto) 32.6 [place] % (Auto) 11.0 Eos % (Auto) 1.8 L Baso % (Auto) 1.0 Neut # (Auto) 3300 Lymph # (Auto) 2000 [place] # (Auto) 700 Eos # (Auto) 100 Baso # (Auto) 100 PT 12.0 INR 1.1 APTT 28 Sodium 137 Potassium 4.0 Chloride 106 Carbon Dioxide 24 BUN 17 Creatinine 0.74 Estimated GFR > 60 BUN/Creatinine Ratio 23.0 H Glucose 101 H Lactate 1.3 Calcium 9.3 Total Bilirubin 0.8 AST 36 ALT 26 Alkaline Phosphatase 74 Total Protein 7.0 Albumin 4.2 Globulin 2.8 Albumin/Globulin Ratio 1.5 Lipase 70 Ethyl Alcohol < 10 Blood Type A Positive Antibody Screen Negative Assessment & Plan Assessment & Plan narrative: This is an 84-year-old male with history of hypertension, chronic sinus bradycardia, glaucoma, left carotid stenosis and osteoarthritis who presents to the ED immediately after falling on his deck, down 5 steps, lacerating the left scalp and fracturing the left intertrochanteric hip. Left Intertrochanteric Femur Fracture -Secondary to fall down 5 steps while pressure washing his deck 09/16/24. -Seen by ortho and will be NPO tonight for surgery tomorrow. -DVT prophylaxis - SCD -Follow H/H Fall on steps, Possible Syncope -Possibly related to chronic SB with increased vagal tone? -Brain CT negative -EKG with SB -No previous syncope and not lightheaded before fall. -IV D5NS 100 ml/h while pre-op. Chronic Sinus Bradycardia -SR HR 43 without AVB on EKG -Telemetry monitoring -Check TSH Hypertension -continue Losartan 25 mg QD Left Scalp Laceration/Hematoma -Sutured 09/16 in the ED He confirms that he is full code and that his is his backup decisionmaker. SCD for DVT prevention, Begin pharmacological treatment when cleared by ortho. Time-Based Coding :: [TOTAL MINUTES] spent with patient and on the chart (including review of chart, obtaining history, exam, reviewing outside data, placing orders, documenting exam and treatment plan, and counseling patient) on [DATE].
--- NOTE | 2024-09-16 15:18 | PC.NURSE ---
Orthopedic and PA at bedside. Witnessed consent. at bedside as well.
--- NOTE | 2024-09-16 15:35 | PM.HP.IH.1 ---
History of Present Illness History of Present Illness Date Patient Seen: 09/16/24 Time Patient Seen: 13:10 Date of Onset of Symptoms: 09/16/24 Chief complaint: fall/modified trauma Narrative: Date of injury: 09/16/2024 Chief complaint: Left hip pain 84-year-old male with left hip pain after a fall off of the stairs. He hit his head when he fell. His head CT in the ER revealed no intracranial hemorrhage. In his laceration was repaired with tonya. He is an active 84-year-old and walks without any assistive devices. He denies pain elsewhere except for his head and hip. Physical exam reveals a well-developed well-nourished 84-year-old in no acute distress. Evaluation of his left lower extremity demonstrates that his skin is intact. His foot is slightly externally rotated. His sensation is intact to light touch in the saphenous, sural, tibial, deep peroneal, and superficial peroneal nerve distributions. He fires his tibialis anterior, gastroc soleus EHL and FHL. His dorsalis pedis and posterior tibial pulses are 2+ and he has brisk capillary refill. CT scan of his head: No intracranial bleed Cervical spine CT scan demonstrated no acute fractures. He does have cervical stenosis and degenerative changes Left hip x-ray demonstrates a mildly displaced intertrochanteric hip fracture. [facility] Medical History (Updated 09/16/24 @ 15:40 by Basia Cueto DO) Diplopia Former smoker Hypertension Status post proximal row carpectomy 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% Surgical History (Updated 09/16/24 @ 15:38 by Raine Burns MD) H/O carpal tunnel repair History of knee replacement procedure of left knee History of knee replacement procedure of right knee History of lumbar laminectomy Family History (Updated 09/16/24 @ 15:39 by Raine Burns MD) Mother Jaundice Kidney failure Father Fire accident Social History (Updated 09/16/24 @ 15:40 by Raine Burns MD) alcohol intake: current Meds Home Medications and Allergies Home Medications ?Medication ?Instructions ?Recorded ?Confirmed ?Type latanoprost 0.005 % eye drops 1 drp EYE-BOTH ONCE PM 03/30/24 07/24/24 History aspirin 81 mg tablet,delayed 81 mg PO DAILY 04/17/24 07/24/24 History release losartan 25 mg tablet 25 mg PO DAILY #60 tabs 04/17/24 07/24/24 Rx Allergies Allergy/AdvReac Type Severity Reaction Status Date / Time adhesive tape (ADHESIVE TAPE) Allergy Mild RASH---PAPER Verified 09/16/24 12:47 OR SILK TAPE IS OK squash (SQUASH) Allergy Mild RASH Verified 09/16/24 12:47 Exam Vital Signs (past 8 hours): - 09/16/24 12:41 09/16/24 12:41 09/16/24 12:46 Temperature 97.4 F L Pulse Rate 42 L 40 L Respiratory Rate 16 Blood Pressure 162/73 H 162/73 H Pulse Oximetry 96 98 Oxygen Delivery Method Room Air 09/16/24 13:02 09/16/24 13:02 09/16/24 13:31 Temperature Pulse Rate 47 L 42 L Respiratory Rate 21 Blood Pressure 137/67 Pulse Oximetry 99 Oxygen Delivery Method 09/16/24 13:32 09/16/24 13:32 09/16/24 14:00 Temperature Pulse Rate 42 L Respiratory Rate 21 Blood Pressure 136/63 148/71 H Pulse Oximetry 99 Oxygen Delivery Method 09/16/24 14:00 09/16/24 14:30 09/16/24 14:31 Temperature Pulse Rate 40 L 42 L 42 L Respiratory Rate 12 17 19 Blood Pressure Pulse Oximetry 98 93 94 Oxygen Delivery Method 09/16/24 14:31 Temperature Pulse Rate 42 L Respiratory Rate 16 Blood Pressure 135/63 Pulse Oximetry 94 Oxygen Delivery Method Room Air Oxygen Delivery Method Room Air Objective Labs 09/16/24 12:25 09/16/24 12:25 Labs: Laboratory Results - last 24 hr 09/16/24 09/16/24 12:25 13:51 WBC 6.2 RBC 4.43 L Hgb 14.5 Hct 42.1 MCV 95.1 MCH 32.8 MCHC 34.5 RDW 13.6 Plt Count 180 Neut % (Auto) 53.6 Lymph % (Auto) 32.6 [place] % (Auto) 11.0 Eos % (Auto) 1.8 L Baso % (Auto) 1.0 Neut # (Auto) 3300 Lymph # (Auto) 2000 [place] # (Auto) 700 Eos # (Auto) 100 Baso # (Auto) 100 PT 12.0 INR 1.1 APTT 28 Sodium 137 Potassium 4.0 Chloride 106 Carbon Dioxide 24 BUN 17 Creatinine 0.74 Estimated GFR > 60 BUN/Creatinine Ratio 23.0 H Glucose 101 H Lactate 1.3 Calcium 9.3 Total Bilirubin 0.8 AST 36 ALT 26 Alkaline Phosphatase 74 Total Protein 7.0 Albumin 4.2 Globulin 2.8 Albumin/Globulin Ratio 1.5 Lipase 70 Ethyl Alcohol < 10 Blood Type A Positive Antibody Screen Negative Assessment & Plan Assessment and plan (1) Intertrochanteric fracture of left femur: Qualifiers: Encounter type: initial encounter Fracture alignment: displaced Fracture type: closed Qualified Code(s): S72.142A - Displaced intertrochanteric fracture of left femur, initial encounter for closed fracture Status: Acute Plan I discussed the risks, benefits and alternatives of surgical versus nonsurgical treatment with the patient. I discussed the risks of surgery including but not limited to damage to arteries, veins, nerves, need for additional surgery, risks of infection, risks of malunion and nonunion, risks of blood clot and risks with anesthesia. He understands all these risks and was consented for operative fixation of the left intertrochanteric hip fracture. This is scheduled for 09/17/2024. - He should be NPO after midnight tonight for surgery tomorrow. - SCDs on his right lower extremity. - I will coordinate with internal medicine to discuss postoperative DVT prophylaxis. Time-Based Coding :: [TOTAL MINUTES] spent with patient and on the chart (including review of chart, obtaining history, exam, reviewing outside data, placing orders, documenting exam and treatment plan, and counseling patient) on [DATE]. [employer] Developer Document charge(s): No
--- NOTE | 2024-09-16 16:28 | PC.ADMIT ---
[id number] [facility] Admission Note: Admitted from the ED via stretcher, moved to new bed with slide board. No IV medications infusing. Patient A/Ox4, complaints of mild nausea and pain in left hip, declined medication for either symptom. Call light within reach, spouse contacted. The patient,Erasto Dewey,84 y/o, was given written information regarding hospital policies, unit procedures and contact persons. Patient's smoking status: Former smoker. Vital Signs - 8 hr 09/16/24 12:41 09/16/24 12:41 09/16/24 12:46 Temperature 97.4 F L Pulse Rate 42 L 40 L Respiratory Rate 16 Blood Pressure 162/73 H 162/73 H Pulse Oximetry 96 98 Oxygen Delivery Method Room Air 09/16/24 13:02 09/16/24 13:02 09/16/24 13:31 Temperature Pulse Rate 47 L 42 L Respiratory Rate 21 Blood Pressure 137/67 Pulse Oximetry 99 Oxygen Delivery Method 09/16/24 13:32 09/16/24 13:32 09/16/24 14:00 Temperature Pulse Rate 42 L Respiratory Rate 21 Blood Pressure 136/63 148/71 H Pulse Oximetry 99 Oxygen Delivery Method 09/16/24 14:00 09/16/24 14:30 09/16/24 14:31 Temperature Pulse Rate 40 L 42 L 42 L Respiratory Rate 12 17 19 Blood Pressure Pulse Oximetry 98 93 94 Oxygen Delivery Method 09/16/24 14:31 09/16/24 15:00 09/16/24 15:00 Temperature Pulse Rate 42 L 46 L Respiratory Rate 16 11 L Blood Pressure 135/63 107/57 L Pulse Oximetry 94 92 Oxygen Delivery Method Room Air 09/16/24 15:30 09/16/24 15:30 09/16/24 15:59 Temperature 97.9 F Pulse Rate 45 L Respiratory Rate 26 H Blood Pressure 122/56 L Pulse Oximetry 96 Oxygen Delivery Method
--- NOTE | 2024-09-16 16:30 | PC.WOUNDPHOT ---
Left scalp laceration, approx. 5cm x 0.5cm, superficial. Left forearm skin tears, approx. 1cm to 1.5cm x 0.5cm to 0.7cm each, superficial.
[2024-09-16] MEDS: HYDROMORPHONE 2 MG TABLET 4 MG PO (21:42)
[2024-09-16] MEDS: SENNOSIDES 8.6 MG TABLET 17.2 MG PO (21:42)
[2024-09-16] MEDS: ONDANSETRON 4 MG/2 ML INJ IV (21:45)
[2024-09-16] MEDS: HYDROCODONE/ACET 5/325 TABLET 1 TAB PO (22:37)
[2024-09-16] MEDS: CYCLOBENZAPRINE 10 MG TABLET PO (23:40)
[2024-09-16] MEDS: DEXTROSE 5%-0.45% NS 1,000 ML 100 ML IV (23:40)
[2024-09-17] VITALS (17 sets, daily range): BP systolic 97–151; BP diastolic 42–63; PULSE 37–76; RESP 12–18; TEMP 35.8–37.3; O2SAT 92–98
--- NOTE | 2024-09-17 | DI.RAD.S_ITS ---
PROCEDURE: XR HIP W PEL IF DONE LT 2V INDICATIONS: FRACTURE REPAIR TECHNIQUE: 2 view(s) of the hip acquired. COMPARISON: [facility], CR, XR HIP W PEL LT 2V, 09/16/2024, 13:10. FINDINGS: Bones: Patient is status post left hip pin fixation, with hardware components in expected positions. The hip joint appears congruent. The visualized bony structures appear intact. Soft tissues: Overlying postoperative changes are noted. No suspicious soft tissue densities. IMPRESSION: Expected post-operative appearance of a hip fixation. Dictated by: Leny Quinteros M.D. on 09/17/2024 at 11:38 Approved by: Leny Quinteros M.D. on 09/17/2024 at 11:39
[2024-09-17] MEDS: HYDROMORPHONE 2 MG TABLET 4 MG PO (05:02)
[2024-09-17 05:52] LABS: Add Manual Diff / Slide Review NO; Hematocrit 36.1 % (41-53); Hemoglobin 12.3 g/dL (13.5-17.5); Lymphocytes Absolute Auto 1500 /uL (1100-4500); Mean Corpuscular HGB Conc 34.2 % (30-36); Mean Corpuscular Hemoglobin 32.6 PG (26-34); Mean Corpuscular Volume 95.3 fL (80-100); Platelet Count 145 X10^3/uL (150-400)
[2024-09-17] MEDS: CYCLOBENZAPRINE 10 MG TABLET PO (06:50)
[2024-09-17] MEDS: DEXTROSE 5%-0.45% NS 1,000 ML 100 ML IV (08:00)
--- NOTE | 2024-09-17 08:19 | PC.NURSE ---
Addendum entered by Karla Rodriguez R.N. 09/17/24 18:52: Pt resting at intervals, denies discomfort, Call light w/in reach, ed alarm on for pt safety. Continue w/plan of care. Addendum entered by Karla Rodriguez R.N. 09/17/24 11:19: Pt continues in OR at this time. Addendum entered by Karla Rodriguez R.N. 09/17/24 08:55: Pt escorted to surgical suite by OR staff via bed. Will asess upon return after surgery. Original Note: Pt A/O Denies discomfort at this time. IVF D5 1/2NS @ 100cc/hr infusing into the LFA NPO since MN Awaiting OR Call light w/in reach. Pt asks appropriately for needs.
--- NOTE | 2024-09-17 08:25 | DI.RAD.S_ITS ---
PROCEDURE: XR KNEE LT 1TO2V INDICATIONS: Knee pain after fall TECHNIQUE: 3 views of the knee were acquired. COMPARISON: None. FINDINGS: Bones: Question tiny displaced avulsion off the superior aspect of the patella. Expected appearance of medial left knee hemiarthroplasty with no evidence of hardware failure or loosening. No suspicious bony lesions. Soft tissues: Positive joint effusion. No suspicious soft tissue calcifications. IMPRESSION: Question tiny displaced avulsion of the superior aspect of the patella. Dictated by: Matt Siegel M.D. on 09/17/2024 at 9:04 Approved by: Matt Siegel M.D. on 09/17/2024 at 9:05
--- NOTE | 2024-09-17 08:46 | PM.PN.1 ---
Subjective Subjective Interval history: S: He was doing well after surgery. He had an ORIF for his fractured hip. He also does not remember the exact period of time after falling. This seems to be consistent with a probable concussion. He was pressure washing 7 steps and apparently fell to the ground from about 3 steps up. He denies any other acute concerns. Exam Vital Signs (past 8 hours): - 09/17/24 05:00 09/17/24 07:00 Temperature 97.9 F Pulse Rate 45 L Respiratory Rate 17 Blood Pressure 99/47 L Pulse Oximetry 97 96 Oxygen Delivery Method Room Air Oxygen Flow Rate 0 Oxygen Delivery Method Room Air Oxygen Flow Rate 0 Narrative Exam Narrative: NAD, alert and oriented. Fluent speech. Left forehead stapled laceration. Lungs are clear, normal rate and effort. Heart is regular, no murmur gallop or rub. Abdomen is soft, non distended. Extremities are free of edema. Objective Labs 09/17/24 05:27 09/16/24 12:25 Labs: Laboratory Results - last 24 hr 09/16/24 09/16/24 09/17/24 12:25 13:51 05:27 WBC 6.2 8.8 RBC 4.43 L 3.79 L Hgb 14.5 12.3 L Hct 42.1 36.1 L MCV 95.1 95.3 MCH 32.8 32.6 MCHC 34.5 34.2 RDW 13.6 13.6 Plt Count 180 145 L Neut % (Auto) 53.6 70.7 Lymph % (Auto) 32.6 16.7 L [place] % (Auto) 11.0 12.2 Eos % (Auto) 1.8 L 0.2 L Baso % (Auto) 1.0 0.2 Neut # (Auto) 3300 6200 Lymph # (Auto) 2000 1500 [place] # (Auto) 700 1100 H Eos # (Auto) 100 0 Baso # (Auto) 100 0 PT 12.0 INR 1.1 APTT 28 Sodium 137 Potassium 4.0 Chloride 106 Carbon Dioxide 24 BUN 17 Creatinine 0.74 Estimated GFR > 60 BUN/Creatinine Ratio 23.0 H Glucose 101 H Lactate 1.3 Calcium 9.3 Total Bilirubin 0.8 AST 36 ALT 26 Alkaline Phosphatase 74 Total Protein 7.0 Albumin 4.2 Globulin 2.8 Albumin/Globulin Ratio 1.5 Lipase 70 Ethyl Alcohol < 10 Blood Type A Positive Antibody Screen Negative [facility] Medical History Fracture, clavicle Former smoker Status post proximal row 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 Left Intertrochanteric Femur Fracture -Secondary to fall down 5 steps while pressure washing his deck 09/16/24. -Seen by ortho and will be NPO tonight for surgery tomorrow. -DVT prophylaxis - SCD, ASA BID. -Follow H/H 2. Fall on steps, Possible concussion. 3. Chronic Sinus Bradycardia, stable. 4. Hypertension, stable. -continue Losartan 25 mg QD 5. Left Scalp Laceration/Hematoma, stable. -Sutured 09/16 in the ED PLAN: -Pain control, physical therapy. -discussed with ortho [id number], aspirin b.i.d. for DVT prophylaxis. He confirms that he is full code and that his is his backup decisionmaker. Time-Based Coding :: [TOTAL MINUTES] spent with patient and on the chart (including review of chart, obtaining history, exam, reviewing outside data, placing orders, documenting exam and treatment plan, and counseling patient) on [DATE].
--- NOTE | 2024-09-17 09:10 | EKG_ITS ---
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
--- NOTE | 2024-09-17 09:25 | SUR.HOLD ---
0901: HR noted to be 37 on arrival to Pre-op; asymptomatic; patient states that his heart rate is low (40s) at baseline at times. EKG ordered; reported to Ebonie Nicole CONCRETE PILE DRIVER OPERATOR
[2024-09-17] MEDS: CEFAZOLIN 2 GM/100 ML PREMIX 100 ML IV (09:45)
[2024-09-17] MEDS: TRANEXAMIC ACID 1,000 MG in SODIUM CHLORIDE 0.9% 100 ML 200 MG IV (09:50)
--- NOTE | 2024-09-17 10:03 | SUR.OPER ---
Supine on padded [place] table with bilateral legs secured in padded positioning boots and suspended in positioning spars, operative leg in traction per surgeon. Head on one pillow. Arm on non-operative side secured on padded armboard <90 degrees abduction. Arm on operative side padded and resting across chest then secured with tape over sheet. Padded perineal post in place per surgeon.
[2024-09-17] MEDS: ACETAMINOPHEN IV 1,000 MG/100 ML VIAL 400 MG IV (10:10)
[2024-09-17] MEDS: BUPIVACAINE 0.5% (PF) 30 ML VIAL INJ (10:13)
--- NOTE | 2024-09-17 11:19 | DI.RAD.S_ITS ---
PROCEDURE: XR HIP W PEL IF DONE LT 2V INDICATIONS: POST OP LEFT HIP REPAIR TECHNIQUE: AP pelvis and lateral view of the hip acquired. COMPARISON: [facility], [place], XR HIP W PEL LT 2V, 09/17/2024, 9:56. [facility], CR, XR HIP W PEL LT 2V, 09/16/2024, 13:10. FINDINGS: Bones: Patient is status post left hip fracture fixation with a medullary beatriz and diagonal fixation screws, with hardware components in expected positions. The hip joint appears congruent. The visualized bony structures appear intact. Soft tissues: Overlying postoperative changes are noted. No suspicious soft tissue densities. IMPRESSION: Excellent postoperative appearance after inter trochanteric hip fracture fixation for healing. Dictated by: Alex Agarwal M.D. on 09/17/2024 at 12:06 Approved by: Alex Agarwal M.D. on 09/17/2024 at 12:07
--- NOTE | 2024-09-17 12:03 | PM.OP.1 ---
Operative Date/Time/Diagnoses Date of procedure: 09/17/24 Time of procedure: 10:07 Pre-op diagnosis: left intertrochanteric hip fracture Post-op diagnosis: same Procedure & Clinicians Procedure: ? LEFT hip closed reduction, internal fixation with cephalomedullary nail fixation Same procedure(s) as scheduled: Yes Surgeon: Basia Cueto Trail Construction Worker: Silvia Ozuna Anesthesia Type: General Operative Notes Findings: LEft intertrocanteric hip fracture Closure Type: primary Specimen(s): none sent Applied: implant(s) Estimated Blood Loss (mL): 50 Procedure in detail: Procedure: 1)??? LEFT hip closed reduction, internal fixation with cephalomedullary nail fixation 2)?Fluoroscopic imaging performed intra-operatively for positioning, fracture reduction assessment and final implantation Faculty Surgeon(s): Basia Cueto D.O. Trail Construction Worker(s): Silvia Ozuna PA-C Pre Operative Diagnosis: LEFT hip intertrochanteric fracture Post Operative Diagnosis: same Implant:? Walker [employer] Nephew Intertan 11.5mm x 20 cm 125 Deg Anesthesia: General Complications: none? Estimated Blood Loss: 50 mL? Findings: per dictation Specimens: None? Patient Status: Patient was extubated and taken to recovery room in stable condition.? Procedure:? INDICATION FOR PROCEDURE:? See preop H&P PROCEDURE IN DETAIL: The patient was met in the preoperative holding area, where the left hip was marked by myself. All of the patient's questions were answered to his satisfaction. The patient was then brought to the operative suite, given general anesthesia and transferred to the surgical bed in a supine position. The anesthesia was adequate throughout the entire procedure. The patient was given a preoperative dose of IV antibiotics. The operative left leg was placed in the traction boot after significant padding with Coban. The right leg was placed in a traction boot and scissored out of the way. A preliminary surgical time out was taken. C-arm magnification was then brought into the field. Traction and internal rotation was placed on the left lower extremity to obtain optimal reduction in both the AP and lateral planes. Once reduction was confirmed, the patient was prepped and draped in the usual sterile orthopedic fashion. A multi-disciplinary surgical time-out was then taken to identify the patient, correct operative site being the left hip and the procedure to be performed as well as a review of the patient's allergies. This time-out was agreed upon by the nurses, anesthesia provider, and surgeon. Using C-arm magnification the tip of the greater trochanter was marked out with marking pen. A 2 inch longitudinal incision was made proximal to the tip of the greater trochanter. A guide pin was placed at the tip of the greater trochanter and confirmed to be in optimal position with the aid of C-arm magnification in both AP and lateral planes and this was passed beyond the level of the lesser trochanter. After confirming acceptable position with a guidewire, an opening reamer was then passed over the guide pin. Reamer and guidepin were then removed in a sterile cephalomedullary nail was slid down the femoral canal. This was confirmed on AP and lateral radiographs. C-arm imaging confirmed that we had seated the nail to the correct height and length. Then, using the trocar for the interlocking lag screw, we marked where the skin incision was to be made prior to insertion. The incision for the screws were then made through the skin and subcutaneous levels as well as the IT band through the radiolucent arm. The proximal trocar was then placed on the lateral femoral cortex and a guide pin was advanced to the center- center position of the femoral head at the level of the subchondral bone. This was confirmed with C-arm imaging in AP and lateral views. A integrated interlocking screw was then selected based off of the measuring guide. The femoral neck was then over drilled the screws were advanced into place. C-arm imaging confirmed that the implant was in acceptable center-center position and the tip apex distance was less than 25 mm. The alignment of the fracture was acceptable.. We then turned our attention to placing the distal interlock screw using the small trocar of the aiming arm and the trocar was placed on the lateral cortex of the bone. The hole for the distal interlock screw was then pre-drilled to both cortices and measured then inserted. After placement of the interlocking screw final images were taken of the hip and femoral shaft confirming that the fracture was acceptably reduced. The hardware was in appropriate position. All wounds were copiously irrigated, the proximal and distal incision , deep layer was then closed with 0-Vicryl and the subcutaneous tissue was then closed with 2-0 Vicryl and the skin was closed with surgical tonya. The leg was then washed with a wet lap sponge and dried and dressed with Xeroform, and a sterile dressing dressing. Twenty-five cc of 0.5% Marcaine was infiltrated into the incisions. The patient was then taken out of traction boot and vascular status was reassessed. The patient was then positioned flat supine on the surgical bed. The patient was extubated by without incident or complication. The patient was then transferred from the surgical bed to the hospital bed and taken to the recovery room in stable position. There were no intraoperative complications. MACHINE APPLICATOR CEMENTER SURGEON: During the operation, the services of physician surgical elastic knitter hand frame were medically indicated and necessary to provide exposure of the operative site for the surgical procedure and to maintain the limb in a proper position to carry out the operation safely and efficiently.? Without the qualified assistant executive housekeeper being present, it would have extended the operative procedure and made the procedure technically more difficult to perform. POSTOPERATIVE PLAN: Following surgery the patient's family was contacted and informed of the successful procedure. All of their questions were answered and we discussed the procedure.? There is no active drainage noted in the post anesthesia area. All the compartments remained soft and compressible in the thigh and the patient will be admitted to the hospital floor for postoperative antibiotics, physical therapy, and pain management. The patient is to be weightbearing as tolerated at this time and is to be discharged to either home or correction facility based on her proceedings with physical therapy during her hospital stay. Patient is to follow up with Dr. Cueto two weeks from date of surgery or discharge. Complications: none Post-operative Condition: stable Disposition: PACU
--- NOTE | 2024-09-17 14:39 | CM.DANOTE ---
Initial DCP Assessment Note Pt is a 84 yo male, resident of [place], arrives after a fall off his deck with subsequent hip fx, patient in the OR today for surgical repair. PCP: Shruthi Buckley Payer: HANNA/Maximino Reviewed chart, pt discussed in multidisciplinary rounds this morning. Patient is active and independent at baseline and is hopeful to return home after surgery. Patient in the OR today with Orthopedic surgeon for repair of left hip fx. SW team will plan to complete initial assessment of need on 09/18 and will follow closely for post operative discharge recommendations from therapies. BUSHRA Mercer Discharge Planning/Care Management CM Discharge Assessment Start: 09/16/24 15:19 Freq: Status: Active Protocol: Document 09/17/24 14:38 SOCORRO (Rec: 09/17/24 14:39 SOCORRO [id number]) Discharge Planning Assessment Assigned Discharge BUSHRA Cristobal Binding Nicker DPOA/Assigned Marilee Dewey, spouse Designee Name Contact Information [phone] Advance Directives? No History Provided By Patient Prior Living House Arrangements Household Members spouse Type of Drives own vehicle transporation used prior to admit Independent with ADL Yes 's Is patient alert and Yes oriented? Discharge Plan Home Transportation Spouse Arrangement Referrals Initiated None needed
[2024-09-17] MEDS: DOCUSATE 100 MG CAPSULE PO (20:09)
[2024-09-17] MEDS: LACTATED RINGERS 1,000 ML 75 ML IV (20:10)
[2024-09-17] MEDS: SENNOSIDES 8.6 MG TABLET 17.2 MG PO (20:10)
[2024-09-17] MEDS: HYDROCODONE/ACET 5/325 TABLET 1 TAB PO (20:16)
[2024-09-18] VITALS (8 sets, daily range): BP systolic 98–114; BP diastolic 38–51; PULSE 51–55; RESP 17–19; TEMP 36.5–37.3; O2SAT 92–98
[2024-09-18] MEDS: CYCLOBENZAPRINE 10 MG TABLET PO ×3 (01:20→17:36)
[2024-09-18 05:39] LABS: Hematocrit 33.7 % (41-53); Hemoglobin 11.6 g/dL (13.5-17.5)
--- NOTE | 2024-09-18 07:55 | PM.PN.1 ---
Subjective Subjective Interval history: Summary: The patient is an 84-year-old male with history of hypertension, bradycardia, glaucoma, carotid stenosis, and OA who presented with a ground level fall and left scalp laceration as well as a left hip fracture. The laceration was stapled in the ED, and he underwent ORIF of the fracture on September 17. He was and lives in [place]. S: His pain is controlled today. He still has no recollection of his fall. His scalp appears unremarkable were laceration was stapled. He denies a headache. Exam Vital Signs (past 8 hours): - 09/18/24 04:00 Temperature 99.1 F Pulse Rate 53 L Respiratory Rate 18 Blood Pressure 98/38 L Pulse Oximetry 95 Oxygen Flow Rate 0 Oxygen Delivery Method Room Air Oxygen Flow Rate 0 Narrative Exam Narrative: NAD, alert and oriented. Fluent speech. Left forehead stapled laceration. Lungs are clear, normal rate and effort. Heart is regular, no murmur gallop or rub. Abdomen is soft, non distended. Extremities are free of edema. Objective ECG Impression: Rate: 43 P: 46 NH: 92 QRS: 77 QRSD: 96 T: 75 QT: 490 QTc: 414 Interpretive Statements Marked sinus bradycardia with short NH Labs 09/18/24 05:10 09/16/24 12:25 Labs: Laboratory Results - last 24 hr 09/18/24 05:10 Hgb 11.6 L Hct 33.7 L PFSH Medical History Fracture, clavicle Former smoker Status post proximal row 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 Left hip fracture, intertrochanteric. Present on admission and active. 2. Fall on steps, possible concussion. Present on admission and improving. 3. Chronic sinus bradycardia, stable. 4. Hypertension, stable. -continue Losartan 25 mg QD 5. Left Scalp Laceration/Hematoma, stable. -Stapled 09/16 in the ED PLAN: -Pain control, physical therapy. -status post ORIF, PT and OT evaluation today. Anticipate senior care facility transition. -ASA b.i.d. for prophylaxis. KYRA: SNF 09/19. He requires at least 2 nights in the hospital and this supports inpatient status. He confirms that he is full code and that his is his backup decisionmaker. Time-Based Coding :: [TOTAL MINUTES] spent with patient and on the chart (including review of chart, obtaining history, exam, reviewing outside data, placing orders, documenting exam and treatment plan, and counseling patient) on [DATE].
[2024-09-18] MEDS: HYDROCODONE/ACET 5/325 TABLET 1 TAB PO ×3 (08:25→20:19)
[2024-09-18] MEDS: ACETAMINOPHEN 325 MG TABLET 650 MG PO (08:25)
[2024-09-18] MEDS: DOCUSATE 100 MG CAPSULE PO ×2 (08:25→20:19)
[2024-09-18] MEDS: ASPIRIN EC 81 MG TABLET PO ×2 (08:25→20:19)
--- NOTE | 2024-09-18 10:24 | PM.PNPO.1 ---
Subjective Subjective Date Patient Seen: 09/18/24 Time Patient Seen: 10:00 Interval history: Admission date: 09/16/24 DOS: 09/17/24 Surgery performed: LEFT hip closed reduction, internal fixation with cephalomedullary nail fixation Patient denies f/c/ns. Pain well controlled. He was having some muscle spasms but seems to have resolved with Flexeril. PE: wd/wn/nad VSS reviewed. Afebrile LLE: dressing clean, dry and intact SILT s/s/t/dp/sp. Fires ta/gs/ehl/fhl H/H 11.6/33.7 Post op radiographs: Intertrochanteric fracture reduced with hardware in good placement. Exam Vital Signs (past 8 hours): - 09/18/24 04:00 09/18/24 08:00 09/18/24 08:36 Temperature 99.1 F 98.9 F Pulse Rate 53 L 52 L Respiratory Rate 18 19 Blood Pressure 98/38 L 114/46 L Pulse Oximetry 95 92 92 Oxygen Delivery Method Room Air Oxygen Flow Rate 0 2 0 Oxygen Delivery Method Room Air Oxygen Flow Rate 0 Objective Labs 09/18/24 05:10 09/16/24 12:25 Labs: Laboratory Results - last 24 hr 09/18/24 05:10 Hgb 11.6 L Hct 33.7 L PFSH Medical History Fracture, clavicle Former smoker Status post proximal row carpectomy 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% Hypertension Diplopia Surgical History History of lumbar laminectomy History of knee replacement procedure of right knee History of knee replacement procedure of left knee H/O carpal tunnel repair Family History Mother Jaundice Kidney failure Father Fire accident Social History household members: spouse Smoking Status: Former smoker alcohol intake: current Assessment & Plan Post-op Assessment and plan (1) Intertrochanteric fracture of left femur: Assessment and Plan narrative: PT/OT today and assessment for home discharge vs rehab facility. Pain control per primary team Aspirin 81 mg bid for DVT prophylaxis Incentive Spriometry He is weightbearing as tolerated with a walker or crutches. F/u in 2 weeks for wound check and staple removal. The orthopedic clinic will call the patient to schedule a post op visit. Postoperative Procedures: Procedures Operation Date: 09/17/24 09:30 Actual Procedure Side Surgeon p Intramedullary Nailing Femur Left Basia Cueto, Postoperative day: 1 Postoperative status: doing well Time Spent With Patient Time with patient: less than 15 minutes
--- NOTE | 2024-09-18 10:35 | PT.IIE ---
Current Diagnoses Displaced intertrochanteric fracture of left femur, initial encounter for closed fracture (09/16/24) Surgery Performed Operation Date: 09/17/24 09:30 Actual Procedures p Intramedullary Nailing Femur(Left) - Basia Cueto, Surgical History (Last Reviewed 09/17/24 @ 08:46 by Kobi Gómez MD) H/O carpal tunnel repair History of knee replacement procedure of left knee History of knee replacement procedure of right knee History of lumbar laminectomy Medical History (Last Reviewed 09/17/24 @ 08:46 by Kobi Gómez MD) Diplopia Former smoker Fracture, clavicle Hypertension Status post proximal row carpectomy 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% Physical Therapy Inpatient Evaluation/Re-Eval M1 PT/OT-IP Prior Functional Status Start: 09/18/24 12:18 Freq: NEEDED Status: Active Protocol: Document 09/18/24 10:35 AB (Rec: 09/18/24 12:33 AB [id number]) Medical Review Prior Functional Status Medical History Yes Reviewed Communication able to make needs known; requires increase time to respond to questions/instructions Mobility and Gait pt stated that he was independent with all mobilities and ambulation without AD Social History Household Members spouse Living Arrangements House Number of Floors ( Two Floors Floors) Number of Stairs To no steps to enter the house Enter/Railing? has 14 steps B rails to get to bedroom level Home Environment High Toilet,Walk in Shower Home Equipment Straight Cane,Hand Held Shower M2 PT-IP Current Condition Start: 09/18/24 12:18 Freq: NEEDED Status: Active Protocol: Document 09/18/24 10:35 AB (Rec: 09/18/24 12:33 AB [id number]) Physical Therapy Current Condition Current Condition Evaluation Date 09/18/24 Treatment Diagnosis fall; L hip fx s/p ORIF; difficulty in walking Onset Date 09/16/24 M3 PT-IP Subjective Start: 09/18/24 12:18 Freq: NEEDED Status: Active Protocol: Document 09/18/24 10:35 AB (Rec: 09/18/24 12:33 AB [id number]) Subjective Physical Therapy Visit Type Type Initial Evaluation Visit Start Time 10:35 Visit Stop Time 11:25 Number of VENDING MACHINE OPERATOR Visits 0 Physical Therapy Visit Comments Patient Comments agreeable to do PT Therapy Pain Assessment Pain When Pain Assessed At Rest Pain Present Pain Present Pain Reported Location Left Knee Intensity 9 Scale Used Numeric (0 - 10) Pain Behaviors Facial Grimacing,Guarding,Holding Area,Wincing Pain Management Apply Cold,Distraction,Modification of Treatment,Re- Techniques positioning,Timing of Activity with Medications M4 PT-IP Mobility and Gait Start: 09/18/24 12:18 Freq: NEEDED Status: Active Protocol: Document 09/18/24 10:35 AB (Rec: 09/18/24 12:33 AB [id number]) PT-Bed Mobility Assessment Supine to Sit Supine to Sit Minimal Assistance PT-Transfer Assessment Sit to and From Stand Sit to and from Maximum Assistance,2 Person Assistance,Use of Upper Stand Extremities Equipment Transfer Assistive Gait Belt,Front Wheeled Walker Device Orthotic/Prosthetic No Devices or Brace: Transfers Transfer Destination Chair Transfer Technique Stand Step Pivot Transfer Ability Level of Assist Maximum Assistance,2 Person Assistance,Use of Upper Extremities Comments Mobility Comments pt in bed. spouse in room. obtained PLOF and home set up. BP in supine: 101/42. MN: 50 O2 sat: 93-94 with 1 L/min O2. pt completed supine to sit min A and cues. able to sit on EOB CGA. c/o slight dizziness. BP: 105/38 LUE. nurse aware. pt sat on EOB for a few minutes. Rechecked BP on RUE: 113/41. pt completed sit to stand max A x 2 and max cues. increase L knee flexion and pt tends not to weight bear on LLE. informed pt regarding WBAT on LLE. pt stated that his R L knee hurts more than the hip. attempted to march in place and was only able to elevate RLE up x 1 max A x 2 with PT stabilizing LLE and pt with c/o increase L knee pain . pt sat back on EOB. BP checked: 112/34. pt rested. placed chair next to pt. sit to stand from EOB max A x 2 and max cues and stand pivot transfer to chair using FWW max A x 2 and max cues. positioned pt on the chair. BP: 116/43. call light and table placed within reach. informed pt and spouse regarding current level of assistance needed and SNF recommendation. pt and spouse agreed and understood. Gait Assessment Comments Gait Comments unable at this time PT-Balance Assessment Sitting Balance and Reactions Static Sitting Good Balance Ability Dynamic Sitting Good Balance Ability Standing Balance and Reactions Static Standing Poor Balance Ability Dynamic Standing Poor Balance Ability Device Used FWW M5 PT-IP Objective Assessments Start: 09/18/24 12:18 Freq: NEEDED Status: Active Protocol: Document 09/18/24 10:35 AB (Rec: 09/18/24 12:33 AB [id number]) Orientation Orientation/Cognition Level of Alertness Alert Orientation Name,Situation Language Function Hard of Hearing Ability Safety Awareness Decreased Safety Awareness Memory Description Short Term Impaired Gross Range of Motion Lower Extremity ROM Assessment Within Functional Limits Strength Lower Extremity Strength Assessment Left Impaired Hip 2+/5 Knee 3/5 Sensation Assessment Sensation Gross Sensation WNL Muscle Tone Muscle Tone WNL Yes M6 PT-IP Treatment Start: 09/18/24 12:18 Freq: NEEDED Status: Active Protocol: Document 09/18/24 10:35 AB (Rec: 09/18/24 12:33 AB [id number]) Physical Therapy Treatment Exercises Exercises Heel Slides Education Education Provided Weight Bearing Status,Post-Op Packet,Safety M7 PT-IP Assessment and Plan Start: 09/18/24 12:18 Freq: NEEDED Status: Active Protocol: Document 09/18/24 10:35 AB (Rec: 09/18/24 12:33 AB [id number]) PT Summary Assessment and Plan Potential Rehabilitation Fair Potential Status of Condition Unstable at Evaluation Summary Impairments Pain,ROM,Strength,Balance,Coordination,Sensation,Tone, Cognition,Bed Mobility,Transfers,Gait,Activity Tolerance Assessment Summary pt is an 84 y/o M who had a fall and sustain a L hip intertrochanteric fx and underwent L hip ORIF POD 1. pt is WBAT on LLE. pt stated that he does not remember falling and stated that he was pressure washing his house and next thing he knows, paramedics are with him. pt currently has low BP and low MN with c/o slight dizziness in sitting but stable. pt requiring max Ax 2 with sit to stand and transfers using fWW and unable to ambulate at this time. pt with c/o increase L knee pain and unable to put much weight on LLE. pt will require 24/7 assist of 2 persons at this time and will benefit from SNF rehab to improve overall mobility independence. Goals Bed Mobility Goal Independent Transfer Goal Minimal Assistance,Front Wheeled Walker Gait Goal Minimal Assistance,Front Wheel Walker Gait Distance 50 Other Goals improve transfers, ambulation using FWW 100 ft SBA up/down 14 steps B rails SBA Days to Meet Goals 10 Frequency of Treatment Other frequency 1-2x/day Treatment Plan Physical Therapy Bed Mobility Training,Transfer Training,Gait Training, Treatment Plan Therapeutic Exercise,Balance Retraining,Post Op Education,Discharge Planning,Hot or Cold Pack, Neuromuscular Re-ed,Coordination Retraining,Manual Therapy Weight Bearing Status Weight Bearing Weight Bear as Tolerated Status Allowed Weight LLE WBAT Bearing Amount ( enter % or #) (%) Recommendations To Nursing Amount of Assist Mechanical Lift Needed Discharge Recommendations PT Discharge SNF Rehab Recommendations Transportation Needs Wheelchair/Cabulance at Discharge - PT assist 2
--- NOTE | 2024-09-18 13:51 | OT.IP.EVAL ---
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% Surgical History (Last Reviewed 09/17/24 @ 08:46 by Kobi Gómez MD) H/O carpal tunnel repair History of knee replacement procedure of left knee History of knee replacement procedure of right knee History of lumbar laminectomy Occupational Therapy Inpatient Evaluation/Re-Eval M1 PT/OT-IP Prior Functional Status Start: 09/18/24 12:18 Freq: NEEDED Status: Active Protocol: Document 09/18/24 12:59 VALENTIN (Rec: 09/18/24 13:18 VALENTIN Desktop) Medical Review Prior Functional Status Medical History Yes Reviewed Communication able to make needs known; requires increase time to respond to questions/instructions Mobility and Gait pt stated that he was independent with all mobilities and ambulation without AD Activities of Daily pt reports being I with BADL, driving, medication mgmt, Living and 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 has 14 steps B rails to get to bedroom level Home Environment High Toilet,Walk in Shower Home Equipment Straight Cane,Hand Held Shower Employment Status Retired M2 OT-IP Current Condition Start: 09/18/24 12:42 Freq: Status: Active Protocol: Document 09/18/24 12:59 VALENTIN (Rec: 09/18/24 13:18 [facility] Desktop) Occupational Therapy Current Condition Current Condition Evaluation Date 09/18/24 Treatment Diagnosis s/p L hip fx s/p ORIF, decreased walking, decreased self care Weight Bearing Status Weight Bearing Weight Bear as Tolerated Status M3 OT- IP Subjective and Pain Start: 09/18/24 12:42 Freq: Status: Active Protocol: Document 09/18/24 12:59 [facility] (Rec: 09/18/24 13:18 [facility]) OT- Subjective Occupational Therapy Visit Type Type Initial Evaluation Visit Start Time 10:35 Visit Stop Time 11:25 Notes Pt reclined in bed with present on entrance of OT/ PT for evaluation. Pt agreeable to participating in eval. Occupational Therapy Visit Comments Patient Comments Pt wants to return to PLOF and finish pressure washing his deck. OT Pain Assessment Pain When Pain Assessed During Mobility Pain Present Pain Present Pain Reported Location Left Knee Intensity 10 Scale Used Numeric (0 - 10) Pain Behaviors Facial Grimacing,Guarding,Holding Area Left Hip Intensity 3 Scale Used Numeric (0 - 10) M4 OT- IP ADL's Start: 09/18/24 12:42 Freq: Status: Active Protocol: Document 09/18/24 12:59 VALENTIN (Rec: 09/18/24 13:18 [facility]) OT [id number] Comments OT Self-Feeding not observed Comments OT ADL-Grooming General Evaluation Grooming Ability Standby Assistance Comments OT Grooming Comments Pt washes his face and hands on set up while seated. OT gives vc to be careful of tonya above L eye. OT ADL-Oral Care Comments Oral Care Comments not observed OT ADL-Dressing General Eval Upper Body Dressing Minimal Assistance Ability Lower Body Dressing Total Assistance Ability Comments OT Dressing Comments Pt needs min A for gown. Pt unable to assist with sock. Pt attempts but is unable to reach his sock. OT ADL-Toileting Comments OT Toileting Pt is I with use of urinal. Pt has not had a BM. Pt Comments likely to need increased assistance with this at this time. OT ADL-Bathing Comments OT Bathing Comments not observed, pt may benefit from sponge bath initially . M5 OT- IP IADL's Start: 09/18/24 12:42 Freq: Status: Active Protocol: Document 09/18/24 12:59 VALENTIN (Rec: 09/18/24 13:18 [facility]) OT-Instrumental Activities of Daily Living Deficits IADL Deficits No Deficits Identified Home Safety Awareness Awareness of Need Good Awareness for Assistance at Home Ability to Problem Able to Problem Solve Solve Emergency Situations Medication Management Medication No Deficits Identified Management Money Management Money Management No Deficits Identified Meal Preparation Meal Preparation Caregiver Provides Assist Meal Preparation I LIBRARY SERVICES COORDINATOR Comments Dish Up Person Dish Up Person Caregiver Provides Assist Dish Up Person I LIBRARY SERVICES COORDINATOR Comments Driving Driving Caregiver Provides Assist Driving Comments I LIBRARY SERVICES COORDINATOR M6 OT- IP Functional Cognition Start: 09/18/24 12:42 Freq: Status: Active Protocol: Document 09/18/24 12:59 [facility]24 [facility] Cognitive Factors Limiting Selfcare Function Cognitive Ability Level of Alertness Alert Patient Orientation Name,Age,Birthday,Month,Date,Year,Day of Week,Place, Situation Attention Span Capable of Focused Attention,Capable of Sustained Ability Attention Ability to Follow Able to Follow One Step Commands,Able to Follow Multi- Commands Step Commands Memory Description No Deficits Noted Safety Awareness No Deficits Noted Problem Solving No deficits Noted Ability Executive Function No Deficits Noted Ability Abstract Thinking No Deficits Noted Ability OT- Vision and Hearing OT- Hearing Assessment OT- Hearing Hearing Impaired,Right Ear Impaired,Left Ear Impaired, Assessment Use of Hearing Aids OT- Vision Assessment Visual Acuity WFL,Glasses All The Time M7 OT- IP Mobility and Balance Start: 09/18/24 12:42 Freq: Status: Active Protocol: Document 09/18/24 12:59 REPLACED BY [facility] (Rec: 09/18/24 13:18 [facility]) OT- Bed Mobility Assessment Supine to Sit Supine to Sit Assist Minimal Assistance,Head of Bed Elevated,Bedrails Scooting Scooting to Edge of Minimal Assistance Bed OT-Transfer Assessment Sit to and From Stand Sit to and from Maximum Assistance,1 Person Assistance,2 Person Stand Assistance,Use of Upper Extremities Transfers Transfer Ability Maximum Assistance,2 Person Assistance,Use of Upper Extremities Technique Transfer Destination Chair Transfer Technique Stand Step Pivot Devices Transfer Assistive Gait Belt,Front Wheeled Walker Devices Comments Mobility Comments BP in supine: 101/42. IA: 50 O2 sat: 93-94 with 1 L/ min O2. pt completed supine to sit min A and cues. able to sit on EOB CGA. c/o slight dizziness. BP: 105 /38 LUE. nurse aware. pt sat on EOB for a few minutes . Rechecked BP on RUE: 113/41. pt completed sit to stand max A x 2 and max cues. increase L knee flexion and with PT providing vc to weight bear on LLE. pt stated that his R L knee hurts more than the hip. sit to stand from EOB max A x 2 and max cues and stand pivot transfer to chair using FWW max A x 2 and max cues. positioned pt on the chair. BP: 116/43. OT- Balance Assessment Sitting Balance and Reactions Static Sitting Good Balance Ability Dynamic Sitting Good Balance Ability Standing Balance and Reactions Static Standing Poor Balance Ability Dynamic Standing Poor Balance Ability M8 OT- IP Objective Assessments Start: 09/18/24 12:42 Freq: Status: Active Protocol: Document 09/18/24 12:59 REPLACED BY [facility] (Rec: 09/18/24 13:18 [facility]) OT Gross Range of Motion Upper Extremity Range of Motion Assessment Within Functional Limits OT Strength Upper Extremity Strength Assessment Within Functional Limits Hand Manager Clinical Strength Hand Dominance Right Comments Strength Comments 5/5 overall B OT-Muscle Tone Assessment Muscle Tone WNL Yes OT Sensation Assessment Edema Edema Absent M9 OT- IP Assessment and Plan Start: 09/18/24 12:42 Freq: Status: Active Protocol: Document 09/18/24 12:59 REPLACED BY [facility] (Rec: 09/18/24 13:18 [facility]) OT Summary Assessment and Plan Potential Rehabilitation Good Potential Analytic Complexity Low at Evaluation Summary OT Impairments Pain,Balance,Functional Mobility,Grooming,Dressing, Toileting,Bathing,Toilet Transfers,Shower Transfers, Activity Tolerance Progress Towards Progressing Toward Goals Goals Assessment Summary Pt is an 84 y/o M who had a fall and sustain a L hip intertrochanteric fx and underwent L hip ORIF POD 1. Pt is WBAT on LLE. Pt stated that he does not remember falling, the last thing he remembers was pressure washing his house and next thing he knows, paramedics are with him. Pt presents with low BP and low IA with some c/o dizziness. Pt requiring max Ax2 with sit to stand and transfers using FWW and unable to ambulate at this time. Pt currently requiring total A for LB dressing, min A for UB dressing, S for use of urinal but will likely need more assist with toileting when using the commode. Pt was I with all BADL and IADL prior to fall and would benefit from skilled OT services to address deficits and promote return toward PLOF. Pt will require 24/7 assist of 2 persons at this time and will benefit from SNF rehab to improve overall functional I. Goals Grooming Goal Independent Dressing Goal Independent Toileting Goal Independent Bathing Goal Independent Toilet Transfer Goal Independent,Grab Bars Shower Transfer Goal Independent,Shower Chair,Grab Bars Days to Meet Goals 15 Frequency of Treatment Other frequency 5x/wk Treatment Plan OT Treatment Plan ADL Training,Functional Mobility,Therapeutic Exercises, Patient/Family Education,Discharge Planning Discharge Recommendations OT Discharge SNF Rehab Recommendations Transportation Needs Wheelchair/Cabulance,Stretcher/Ambulance at Discharge
[2024-09-18] MEDS: SODIUM CHLORIDE 0.9% 500 ML 1000 ML IV (17:35)
[2024-09-18] MEDS: SODIUM CHLORIDE 0.9% 1,000 ML 100 ML IV (17:37)
[2024-09-18] MEDS: SENNOSIDES 8.6 MG TABLET 17.2 MG PO (20:19)
[2024-09-18] MEDS: LATANOPROST 0.005% OPHTH 2.5 ML 1 DROPS EYE-BOTH (20:21)
[2024-09-18] MEDS: HYDROMORPHONE 2 MG TABLET 4 MG PO (23:50)
[2024-09-19] VITALS (7 sets, daily range): BP systolic 107–124; BP diastolic 46–57; PULSE 48–54; RESP 16–20; TEMP 36.6–37.4; O2SAT 93–100
[2024-09-19] MEDS: CYCLOBENZAPRINE 10 MG TABLET PO (03:29)
[2024-09-19 05:08] LABS: Hematocrit 31.4 % (41-53); Hemoglobin 10.9 g/dL (13.5-17.5); Mean Corpuscular HGB Conc 34.6 % (30-36); Mean Corpuscular Hemoglobin 33.2 PG (26-34); Mean Corpuscular Volume 96.1 fL (80-100); Platelet Count 114 X10^3/uL (150-400)
[2024-09-19 05:13] LABS: Blood Urea Nitrogen 11 mg/dL (9-20); Calcium 8.5 mg/dL (8.4-10.2); Carbon Dioxide 30 mmol/L (22-32); Chloride 102 mmol/L (98-107); Estimated Glomerular Filt Rate > 60 mL/min (>60); Glucose 101 mg/dL (70-99); HEMOLYSIS < 15 (0-50); Potassium 4.4 mmol/L (3.4-5.1); Sodium 133 mmol/L (137-145)
[2024-09-19] MEDS: SODIUM CHLORIDE 0.9% 1,000 ML 100 ML IV ×3 (05:17→23:35)
--- NOTE | 2024-09-19 07:34 | P.PN_ITS ---
Subjective Subjective Date Patient Seen: 09/19/24 Interval history: His is visiting today. She heard him fall but did not see any details beyond what he has already told us. The left scalp hematoma has diminished by more than half. The hemoglobin 10.9 with a white blood count of 8.3 and platelets of 114. The creatinine is 0.65 with a sodium of 133. His heart rate continues in the 40s as expected. He is agreeable to custodial facility rehab. Exam Vital Signs (past 8 hours): - 09/19/24 05:00 Temperature 97.8 F Pulse Rate 49 L Respiratory Rate 16 Blood Pressure 123/46 L Pulse Oximetry 94 Oxygen Flow Rate 0 Oxygen Delivery Method Room Air Oxygen Flow Rate 0 Narrative Exam Narrative: Alert and oriented x3. No apparent distress. Heart is regular rate and rhythm without murmur Lungs are clear to auscultation bilaterally Extremities have no ankle edema Left hip repair is intact without bleeding or infection. Left temporal scalp swelling is much diminished with tonya intact. 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 Left hip fracture, intertrochanteric. Present on admission and active. 2. Fall on steps, possible concussion. Present on admission and improving. 3. Chronic sinus bradycardia, stable. 4. Hypertension, stable. -continue Losartan 25 mg QD 5. Left Scalp Laceration/Hematoma, stable. -Stapled 09/16 in the ED PLAN: -Pain control, physical therapy. -status post ORIF, PT and OT. Anticipate custodial facility transition. -ASA b.i.d. for prophylaxis. KYRA: SNF when accepted/insurance approves. He confirms that he is full code and that his is his backup decisionmaker. Time-Based Coding :: [TOTAL MINUTES] spent with patient and on the chart (including review of chart, obtaining history, exam, reviewing outside data, placing orders, documenting exam and treatment plan, and counseling patient) on [DATE].
[2024-09-19] MEDS: DOCUSATE 100 MG CAPSULE PO ×2 (08:18→20:24)
[2024-09-19] MEDS: ASPIRIN EC 81 MG TABLET PO ×2 (08:18→20:24)
[2024-09-19] MEDS: LOSARTAN 25 MG TABLET PO (08:18)
[2024-09-19] MEDS: HYDROCODONE/ACET 5/325 TABLET 1 TAB PO ×2 (08:18→20:23)
[2024-09-19] MEDS: HYDROMORPHONE 1 MG INJ IV (11:50)
--- NOTE | 2024-09-19 12:26 | PT.IPTN ---
Addendum entered and electronically signed by Ginger Garrido, PT 09/19/24 12:46: Missed item in note: Minimum assist needed for supine to sit with head of bed elevated and use of bed rails Pt moves slowly but only needed assist for left LE. Original Note: Current Diagnoses Displaced intertrochanteric fracture of left femur, initial encounter for closed fracture (09/16/24) Surgery Performed Operation Date: 09/17/24 09:30 Actual Procedures p Intramedullary Nailing Femur(Left) - Basia Cueto, DO Physical Therapy Treatment Note M2 PT-IP Current Condition Start: 09/18/24 12:18 Freq: NEEDED Status: Active Protocol: Document 09/18/24 10:35 AB (Rec: 09/18/24 12:33 AB [id number]) Physical Therapy Current Condition Current Condition Evaluation Date 09/18/24 Treatment Diagnosis fall; L hip fx s/p ORIF; difficulty in walking Onset Date 09/16/24 M3 PT-IP Subjective Start: 09/18/24 12:18 Freq: NEEDED Status: Active Protocol: Document 09/19/24 12:26 DLM (Rec: 09/19/24 12:43 DLM Desktop) Subjective Physical Therapy Visit Type Type Treatment Note Visit Start Time 11:30 Visit Stop Time 12:26 Notes 56 min Number of CLINICAL NURSE OCCUPATIONAL MEDICINE Visits 0 Physical Therapy Visit Comments Patient Comments He reports getting cramping in left LE, knee is sore and pain in hip area. He reports it is very painful to roll in bed. Patient Goals Get better Therapy Pain Assessment Pain When Pain Assessed After Treatment Pain Present Pain Present Pain Reported Location Left Hip Intensity 6 Scale Used Numeric (0 - 10) Description Aching,Cramping,Tender,With Movement Pain Behaviors Facial Grimacing,Guarding,Wincing Pain Management Apply Cold,Modification of Treatment,Re-positioning, Techniques Timing of Activity with Medications M4 PT-IP Mobility and Gait Start: 09/18/24 12:18 Freq: NEEDED Status: Active Protocol: Document 09/19/24 12:26 DLM (Rec: 09/19/24 12:43 DLM Desktop) PT-Transfer Assessment Sit to and From Stand Sit to and from Minimal Assistance,1 Person Assistance,Use of Upper Stand Extremities Equipment Transfer Assistive Gait Belt,Front Wheeled Walker Device Transfers Transfer Destination Chair Transfer Technique Stand Pivot Transfer Ability Level of Assist Minimal Assistance Comments Mobility Comments Pt received IV pain medication before mobility this visit. Pt sat edge of bed, progressed to stand and then to a transfer to the recliner. He had to most pain going from standing to sitting in the recliner which made it very difficult to complete the process. Once in the recliner his pain slowly decreased from 9/10 to 6/ 10. Pt is mostly scooting his feet to complete the transfer. Pt left up in the recliner for lunch. Call light close and nursing aware. He is moving slowly with all mobility this visit to manage his pain. Gait Assessment Comments Gait Comments unable to progress to gait, not taking functional steps yet He tolerates very little weight on left LE, pt using UE 's and right LE for standing, left foot on floor Stair Climbing Assessment Comments Stair Climbing unable Comments PT-Balance Assessment Sitting Balance and Reactions Static Sitting Good Balance Ability Dynamic Sitting Good Balance Ability Standing Balance and Reactions Static Standing Fair Balance Ability Dynamic Standing Fair Balance Ability Device Used FWW M5 PT-IP Objective Assessments Start: 09/18/24 12:18 Freq: NEEDED Status: Active Protocol: Document 09/19/24 12:26 DLM (Rec: 09/19/24 12:43 DLM Desktop) Orientation Orientation/Cognition Level of Alertness Alert Orientation Name,Age,Birthday,Month,Date,Year,Day of Week,Place, Situation Language Function Hard of Hearing Ability Safety Awareness Understands Safety Issues Coordination Assessment Gross Coordination Gross Coordination WNL Other Assessments Other Other Assessments he reports a hx of cramping in thighs that caused him to stop riding his bicycle. He underwent testing but no reason for the severe cramping was found. M6 PT-IP Treatment Start: 09/18/24 12:18 Freq: NEEDED Status: Active Protocol: Document 09/19/24 12:26 DLM (Rec: 09/19/24 12:43 DLM Desktop) Physical Therapy Treatment Exercises Exercises Ankle Pumps,Gluteal Sets,Quad Sets,Seated Knee Flexion/ Extension Education Education Provided Weight Bearing Status,Safety M7 PT-IP Assessment and Plan Start: 09/18/24 12:18 Freq: NEEDED Status: Active Protocol: Document 09/19/24 12:26 DLM (Rec: 07/05/25 12:43 DLM Desktop) PT Summary Assessment and Plan Summary Impairments Pain,ROM,Strength,Balance,Cognition,Bed Mobility, Transfers,Gait,Activity Tolerance Progress Towards Slow Progress due to Pain,Slow Progress due to Activity Goals Tolerance Assessment Summary Jose Carlos is progressing well but slowly post-op left femur ORIF. He continues to have difficulty with pain management. He reports his pain is better during therapy today compared to yesterday. He moves slowly during all mobility to manage his pain. He continues to have no memory of his fall at home. Mild dizziness with initial sitting up that improved with time in sitting. He was able to transfer up to the recliner this visit with one person assist and FWW. He had to most severe pain this visit during stand to sit to the recliner. Will trial different chairs to see if a taller chair will be less painful for him. He had less pain with sit to and from stand from the bed which is taller. Will encourage pt to participate in therapy twice a day as able with pain management. Continue to recommend SNF rehab at discharge. Goals Bed Mobility Goal Independent Transfer Goal Minimal Assistance,Front Wheeled Walker Gait Goal Minimal Assistance,Front Wheel Walker Gait Distance 50 Other Goals improve transfers, ambulation using FWW 100 ft SBA up/down 14 steps B rails SBA Days to Meet Goals 10 Frequency of Treatment Frequency Of Twice a Day Treatment Other frequency as tolerated by pain Treatment Plan Physical Therapy Bed Mobility Training,Transfer Training,Gait Training, Treatment Plan Therapeutic Exercise,Balance Retraining,Post Op Education,Discharge Planning,Hot or Cold Pack, Neuromuscular Re-ed,Manual Therapy Precautions Other Precautions fall risk Weight Bearing Status Weight Bearing Weight Bear as Tolerated Status Allowed Weight Left LE s/p ORIF, use FWW Bearing Amount ( enter % or #) (%) Recommendations To Nursing Amount of Assist Mechanical Lift Needed Discharge Recommendations PT Discharge SNF Rehab Recommendations Transportation Needs Wheelchair/Cabulance at Discharge - PT assist 1-2
--- NOTE | 2024-09-19 13:49 | CM.DPNOTE ---
DCP note CLOTH PRINTING BACK TENDER reviewed EMR per chart review, PT/OT rec SNF. CLOTH PRINTING BACK TENDER met with pt in room. introduced self and role. pt agreeable to SNF. CLOTH PRINTING BACK TENDER reviewed options. pt preference to remain closest to home as possible. CLOTH PRINTING BACK TENDER emailed referral to August at . per August, can accept pt tomorrow at 11:30am. make sure pt understands it is a shared room and there's 3 COVID pos isolating in building. CLOTH PRINTING BACK TENDER completed PASRR. CLOTH PRINTING BACK TENDER went to update pt in room, sleeping soundly, allowed to rest. P: dc tomorrow at 11:30 to pending medical stability. CM team will continue to follow closely for DCP coordination BUSHRA Smith
--- NOTE | 2024-09-19 14:53 | PM.PNPO.1 ---
Subjective Subjective Date Patient Seen: 09/19/24 Time Patient Seen: 14:47 Interval history: Admission date: 09/16/24 DOS: 09/17/24 Surgery performed: LEFT hip closed reduction, internal fixation with cephalomedullary nail fixation Patient denies f/c/ns. He denies chest pain or shortness of breath. Pain well controlled. He has been up with PT ambulating with assistance. Sitting in a chair with some discomfort. PE: wd/wn/nad VSS reviewed. Afebrile LLE: dressing clean, dry and intact SILT s/s/t/dp/sp. Fires ta/gs/ehl/fhl H/H 11.6/33.7 (09/18) 10.9/31.4 (09/19) Exam Vital Signs (past 8 hours): - 09/19/24 07:00 09/19/24 08:00 09/19/24 08:18 Temperature 98.2 F Pulse Rate 51 L 48 L Respiratory Rate 19 Blood Pressure 124/50 L 124/50 L Pulse Oximetry 94 Oxygen Delivery Method Room Air 09/19/24 12:00 Temperature 98.0 F Pulse Rate 51 L Respiratory Rate 19 Blood Pressure 107/57 L Pulse Oximetry 94 Oxygen Delivery Method Oxygen Delivery Method Room Air Oxygen Flow Rate 0 Objective Labs 09/19/24 04:30 09/19/24 04:30 Labs: Laboratory Results - last 24 hr 09/19/24 04:30 WBC 8.3 RBC 3.27 L Hgb 10.9 L Hct 31.4 L MCV 96.1 MCH 33.2 MCHC 34.6 RDW 13.7 Plt Count 114 L Sodium 133 L Potassium 4.4 Chloride 102 Carbon Dioxide 30 BUN 11 Creatinine 0.65 L Estimated GFR > 60 BUN/Creatinine Ratio 16.9 Glucose 101 H Calcium 8.5 PFSH Medical History Fracture, clavicle Former smoker Status post proximal row carpectomy 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% Hypertension Diplopia Surgical History History of lumbar laminectomy History of knee replacement procedure of right knee History of knee replacement procedure of left knee H/O carpal tunnel repair Family History Mother Jaundice Kidney failure Father Fire accident Social History household members: spouse Smoking Status: Former smoker alcohol intake: current Assessment & Plan Post-op Assessment and plan (1) Intertrochanteric fracture of left femur: Postoperative Procedures: Procedures Operation Date: 09/17/24 09:30 Actual Procedure Side Surgeon p Intramedullary Nailing Femur Left Basia Cueto, DO Postoperative day: 2 Postoperative status: doing well Postoperative plan narrative: PT/OT today and assessment for home discharge vs rehab facility. Pain control per primary team Aspirin 81 mg bid for DVT prophylaxis Incentive Spirometry He is weightbearing as tolerated with a walker or crutches. F/u in 2 weeks for wound check and staple removal. The orthopedic clinic will call the patient to schedule a post op visit. Time Spent With Patient Time with patient: less than 15 minutes
[2024-09-19] MEDS: HYDROMORPHONE 2 MG TABLET 4 MG PO (15:05)
--- NOTE | 2024-09-19 15:05 | PT.IPTN ---
Current Diagnoses Displaced intertrochanteric fracture of left femur, initial encounter for closed fracture (09/16/24) Surgery Performed Operation Date: 09/17/24 09:30 Actual Procedures p Intramedullary Nailing Femur(Left) - Basia Cueto, DO Physical Therapy Treatment Note M2 PT-IP Current Condition Start: 09/18/24 12:18 Freq: NEEDED Status: Active Protocol: Document 09/18/24 10:35 AB (Rec: 09/18/24 12:33 AB [id number]) Physical Therapy Current Condition Current Condition Evaluation Date 09/18/24 Treatment Diagnosis fall; L hip fx s/p ORIF; difficulty in walking Onset Date 09/16/24 M3 PT-IP Subjective Start: 09/18/24 12:18 Freq: NEEDED Status: Active Protocol: Document 09/19/24 15:05 DLM (Rec: 09/19/24 16:11 DLM Desktop) Subjective Physical Therapy Visit Type Type Treatment Note Visit Start Time 14:30 Visit Stop Time 15:05 Notes 35 min Number of ESCORT SERVICE ATTENDANT Visits 0 Physical Therapy Visit Comments Patient Comments He feels he did well sitting up in the chair but ready to go back to bed. Therapy Pain Assessment Pain When Pain Assessed After Treatment Pain Present Pain Present Pain Reported Location Left Knee Intensity 6 Scale Used Numeric (0 - 10) Description Aching,Tender Pain Management Modification of Treatment,Re-positioning Techniques Left Hip Intensity 9 Scale Used Numeric (0 - 10) Description Aching,Cramping,Tender,With Movement Pain Behaviors Facial Grimacing,Guarding,Wincing Pain Management Apply Cold,Modification of Treatment,Re-positioning, Techniques Timing of Activity with Medications M4 PT-IP Mobility and Gait Start: 09/18/24 12:18 Freq: NEEDED Status: Active Protocol: Document 09/19/24 15:05 DLM (Rec: 09/19/24 16:11 DLM Desktop) PT-Bed Mobility Assessment Sit to Supine Sit to Supine Minimal Assistance Scooting Scooting to Edge of Standby Assistance Bed PT-Transfer Assessment Sit to and From Stand Sit to and from Minimal Assistance,1 Person Assistance,Use of Upper Stand Extremities Equipment Transfer Assistive Gait Belt,Front Wheeled Walker Device Transfers Transfer Destination Bed Transfer Technique Stand Pivot Transfer Ability Level of Assist Minimal Assistance Comments Mobility Comments He did well getting up from the recliner with use of UE 's and min assist. He continues to scoot his feet more than step during transfer bed-chair. Pt has been sitting up in recliner since his AM visit and tolerated it well. Pt c/o being shaky and cold when back in bed. Gait Assessment Comments Gait Comments unable to progress to gait, not taking functional steps yet He tolerates very little weight on left LE, pt using UE 's and right LE for standing, left foot on floor Stair Climbing Assessment Comments Stair Climbing unable Comments PT-Balance Assessment Sitting Balance and Reactions Static Sitting Good Balance Ability Dynamic Sitting Good Balance Ability Standing Balance and Reactions Static Standing Fair Balance Ability Dynamic Standing Fair Balance Ability Device Used FWW M5 PT-IP Objective Assessments Start: 09/18/24 12:18 Freq: NEEDED Status: Active Protocol: Document 09/19/24 12:26 DLM (Rec: 09/19/24 12:43 DLM Desktop) Orientation Orientation/Cognition Level of Alertness Alert Orientation Name,Age,Birthday,Month,Date,Year,Day of Week,Place, Situation Language Function Hard of Hearing Ability Safety Awareness Understands Safety Issues Coordination Assessment Gross Coordination Gross Coordination WNL Other Assessments Other Other Assessments he reports a hx of cramping in thighs that caused him to stop riding his bicycle. He underwent testing but no reason for the severe cramping was found. M6 PT-IP Treatment Start: 09/18/24 12:18 Freq: NEEDED Status: Active Protocol: Document 09/19/24 15:05 DLM (Rec: 09/19/24 16:11 DLM Desktop) Physical Therapy Treatment Exercises Exercises Ankle Pumps,Heel Slides,Short Arc Quads Education Education Provided Weight Bearing Status,Safety Other Treatments Other Treatment assistance with exercises to manage his pain, stiffness Performed noted with DF but functional strength all movements are done slowly and limited ROM to manage his pain M7 PT-IP Assessment and Plan Start: 09/18/24 12:18 Freq: NEEDED Status: Active Protocol: Document 09/19/24 15:05 DLM (Rec: 09/19/24 16:11 DLM Desktop) PT Summary Assessment and Plan Summary Impairments Pain,ROM,Strength,Balance,Cognition,Bed Mobility, Transfers,Gait,Activity Tolerance Progress Towards Slow Progress due to Pain,Slow Progress due to Activity Goals Tolerance Assessment Summary Jose Carlos continues to progress well but slowly with therapy today. He continues to reports increased left hip and knee pain with activity. He shows improved ability to use UE's on FWW to compensate for left LE pain during transfers. He was not able to progress to gait this visit. He continues to need one person assist. He tolerated sitting up well. Continue to recommend SNF rehab at discharge. Goals Bed Mobility Goal Independent Transfer Goal Minimal Assistance,Front Wheeled Walker Gait Goal Minimal Assistance,Front Wheel Walker Gait Distance 50 Other Goals improve transfers, ambulation using FWW 100 ft SBA up/down 14 steps B rails SBA Days to Meet Goals 10 Frequency of Treatment Frequency Of Twice a Day Treatment Other frequency as tolerated by pain Treatment Plan Physical Therapy Bed Mobility Training,Transfer Training,Gait Training, Treatment Plan Therapeutic Exercise,Balance Retraining,Post Op Education,Discharge Planning,Hot or Cold Pack, Neuromuscular Re-ed,Manual Therapy Precautions Other Precautions left knee pain also since fall Weight Bearing Status Weight Bearing Weight Bear as Tolerated Status Allowed Weight left LE s/p femur ORIF Bearing Amount ( enter % or #) (%) Recommendations To Nursing Amount of Assist 1 Person Assist Needed Discharge Recommendations PT Discharge SNF Rehab Recommendations Transportation Needs Wheelchair/Cabulance at Discharge - PT assist 1
[2024-09-19] MEDS: SENNOSIDES 8.6 MG TABLET 17.2 MG PO (20:24)
[2024-09-19] MEDS: LATANOPROST 0.005% OPHTH 2.5 ML 1 DROPS EYE-BOTH (20:27)
[2024-09-20] VITALS: BP 103/48; PULSE 52; RESP 16; TEMP 36.8; O2SAT 95
[2024-09-20 04:00] VITALS: BP 125/45; PULSE 50; RESP 16; TEMP 36.7; O2SAT 98
[2024-09-20 05:13] LABS: Hematocrit 31.8 % (41-53); Hemoglobin 11.0 g/dL (13.5-17.5); Mean Corpuscular HGB Conc 34.6 % (30-36); Mean Corpuscular Hemoglobin 33.2 PG (26-34); Mean Corpuscular Volume 96.0 fL (80-100); Platelet Count 120 X10^3/uL (150-400)
[2024-09-20 05:23] LABS: Blood Urea Nitrogen 10 mg/dL (9-20); Calcium 8.5 mg/dL (8.4-10.2); Carbon Dioxide 30 mmol/L (22-32); Chloride 103 mmol/L (98-107); Estimated Glomerular Filt Rate > 60 mL/min (>60); Glucose 107 mg/dL (70-99); HEMOLYSIS < 15 (0-50); Potassium 4.4 mmol/L (3.4-5.1); Sodium 134 mmol/L (137-145)
[2024-09-20] MEDS: HYDROCODONE/ACET 5/325 TABLET 1 TAB PO ×2 (05:31→09:45)
[2024-09-20 07:00] VITALS: O2SAT 99
--- NOTE | 2024-09-20 07:35 | P.PN_ITS ---
Subjective Subjective Date Patient Seen: 09/20/24 Exam Vital Signs (past 8 hours): - 09/20/24 00:00 09/20/24 04:00 Temperature 98.3 F 98.1 F Pulse Rate 52 L 50 L Respiratory Rate 16 16 Blood Pressure 103/48 L 125/45 L Pulse Oximetry 95 98 Oxygen Flow Rate 0 0 Oxygen Delivery Method Room Air Oxygen Flow Rate 0 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 Left hip fracture, intertrochanteric. Present on admission and active. 2. Fall on steps, possible concussion. Present on admission and improving. 3. Chronic sinus bradycardia, stable. 4. Hypertension, stable. -continue Losartan 25 mg QD 5. Left Scalp Laceration/Hematoma, stable. -Stapled 7/ in the ED PLAN: -Pain control, physical therapy. -status post ORIF, PT and OT. Anticipate intermediate facility transition. -ASA b.i.d. for prophylaxis. KYRA: SNF when accepted/insurance approves. He confirms that he is full code and that his is his backup decisionmaker. Time-Based Coding :: [TOTAL MINUTES] spent with patient and on the chart (including review of chart, obtaining history, exam, reviewing outside data, placing orders, documenting exam and treatment plan, and counseling patient) on [DATE].
[2024-09-20 08:00] VITALS: BP 115/45; PULSE 59; RESP 19; TEMP 36.6; O2SAT 92
[2024-09-20] MEDS: LOSARTAN 25 MG TABLET PO (08:49)
[2024-09-20] MEDS: ASPIRIN EC 81 MG TABLET PO (08:49)
[2024-09-20] MEDS: DOCUSATE 100 MG CAPSULE PO (08:49)
--- NOTE | 2024-09-20 10:39 | P.DS_ITS ---
History of Present Illness History of Present Illness Chief complaint: fall/modified trauma Narrative: This is an 84-year-old male with history of hypertension, chronic sinus bradycardia, glaucoma, left carotid stenosis and osteoarthritis who presents to the ED immediately after falling on his deck, down 5 steps, lacerating the left scalp and fracturing the left intertrochanteric hip. The laceration has been sutured. He is scheduled for orthopedic surgery tomorrow. Imaging including brain CT, EKG and labs are reassuring. 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 He will need to be on telemetry as it is unclear whether he experienced the fall as a result of excess bradycardia or some other cause. He was pressure washing his deck when his heard him fall. He has no memory of the fall and was feeling well before that. His next memory is of the paramedics picking him up. He says he has all of his life had asymptomatic bradycardia in the 40s. Discharge Providers Provider Date of admission: 09/16/24 15:03 Discharge Date: 09/20/24 Primary care physician: Shruthi Buckley DO Consults: 09/17/24 18:50 Consult to Discharge Planning Routine Comment: Consult to Occupational Therapy Evaluate & Treat Comment: WBAT LLE with walker Physician Instructions: Evaluate and treat, no hip precautions Consult to Physical Therapy Evaluate & Treat Comment: WBAT LLE with walker Physician Instructions: No hip precautions, evaluate and treat Discharge provider: Raine Burns MD Summary Hospital Course Hospital Course: 1. Left hip fracture, intertrochanteric. Status post IM nail fixation. 2. Fall on steps, possible concussion. 3. Chronic sinus bradycardia. 4. Hypertension -continue Losartan 25 mg QD 5. Left Scalp Laceration/Hematoma -Stapled 09/16 in the ED PLAN: -Pain control, physical therapy. -status post ORIF, PT and OT. Transfer to care home facility today for ongoing rehabilitation. -ASA b.i.d. for DVT prophylaxis. His fall at home remains unexplained. He was pressure washing the steps to his backyard deck and does not recall any premonition of illness. His did not witness the fall so it is unclear whether he tripped. We did not find any potential cause of syncope while he has been in the hospital. His hemoglobin today is 11.0. The metabolic panel is normal. He has developed a pruritic rash on his back that will be treated with topical steroids. He confirms that he is full code and that his is his backup decisionmaker. Status at Discharge Cognitive/behavioral status at discharge: at baseline, oriented Functional status at discharge: uses cane/walker Overall status at discharge: patient is progressing back to baseline Exam Vital Signs (past 8 hours): - 09/20/24 04:00 09/20/24 08:00 Temperature 98.1 F 97.8 F Pulse Rate 50 L 59 L Respiratory Rate 16 19 Blood Pressure 125/45 L 115/45 L Pulse Oximetry 98 92 Oxygen Flow Rate 0 Oxygen Delivery Method Room Air Oxygen Flow Rate 0 Narrative Exam Narrative: He is alert and oriented x3. No apparent distress. Heart is regular rate and rhythm without murmur Lungs are clear to auscultation bilaterally Extremities have no ankle edema Left hip tenderness as expected. He has been needing pain medicine only 2 or 3 times per day. 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% Hypertension Diplopia Surgical History History of lumbar laminectomy History of knee replacement procedure of right knee History of knee replacement procedure of left knee H/O carpal tunnel repair Family History Mother Jaundice Kidney failure Father Fire accident Social History household members: spouse Smoking Status: Former smoker alcohol intake: current Discharge Plan Discharge Plan Patient Disposition: SNF Transfer to: [facility] Under care of provider: Facility Lead [employer] Provider Discharge Comment: SURGICAL PROCEDURE: Operative fixation LEFT Hip with Intramedullary Nail SURGEON: Dr. Cueto DATE: 09/17/24 ACTIVITY INSTRUCTIONS oYou are weight bearing as tolerated to the left lower extremity with a walker. We encourage active movement of the toes and ankle every hour while awake to circulate blood. oYou must be cleared by your orthopedic provider before operating a vehicle. DRESSING CARE oYou have a simple waterproof dressing in place. Leave the dressing in place until your follow up in the orthopedic clinic. You may shower with the dressing in place. oKeep extremity elevated to the level of the heart to reduce swelling. You can use ice on top of the dressing to reduce pain and swelling of the extremity. oIf you notice fever, chills, redness, excessive drainage or bleeding, a sharp increase in pain that persists after taking pain medication, pain in your calf muscles, chest pain or trouble breathing please unwrap the dressing and investigate. Then call the office with findings for further guidance. If it is after regular clinic hours, please seek care in the emergency department. oIn the rare case of any severe chest pain and trouble breathing, seek immediate care, do not delay for a call to the clinic. POST-OPERATIVE INSTRUCTIONS oYou may resume your normal diet if there is no nausea or vomiting. You may want to avoid spicy, greasy, or heavy foods today to minimize gas. oIf nausea or vomiting occurs, don't eat or drink anything for one hour. Then start drinking small amounts of clear liquids. Later, add crackers, gradually building up to your usual diet. oFollow up with the orthopedic clinic in 2 weeks. Call our office at [phone] with any concerns MEDICATIONS oTake three pills of 325 mg Tylenol (acetaminophen) every 8 hours regardless of pain in a scheduled manner. Do not exceed 3000 mg of Tylenol (from ALL sources, including over the counter combination products) in a 24-hour period due to risk of liver injury. oTake one pill of 5 mg oxycodone by mouth every 4-6 hours as needed for break through pain stronger than 7 out of 10 on a pain scale. Take this for severe pain 1 hour after taking the scheduled Tylenol. oTake 200 mg of Colace by mouth every 12 hours for constipation. Narcotic medications such as oxycodone may increase your risk of constipation after surgery. oTake 4 mg of Zofran by mouth every 6 hours as needed for uncontrolled nausea or vomiting. If you have persistent nausea and vomiting call our office or seek care in the emergency department. oTake one pill of 81 mg of aspirin two times daily 12 hours apart for 6 weeks for blood clot prevention. Take this medication regardless of pain. oResume all of your normal home medications unless specified otherwise by your surgeon tomorrow morning. Discharge orders & Medications Prescriptions: New cyclobenzaprine 10 mg Tablet 10 mg PO Q8HR PRN (Reason: Spasms) Qty: 20 0RF sennosides [senna] 8.6 mg Tablet 17.2 mg PO BEDTIME Qty: 15 0RF acetaminophen 325 mg Tablet 650 mg PO Q6H PRN (Reason: Fever/Mild Pain (1-3)) Qty: 30 0RF polyethylene glycol 3350 17 gram Powder In Packet 17 gm PO DAILY Qty: 15 0RF hydrocodone-acetaminophen 5-325 mg Tablet 1 tab PO Q4H PRN (Reason: Pain, Moderate (4-6)) Qty: 15 0RF aspirin 81 mg Tablet,Delayed Release (Dr/Ec) 81 mg PO BID Qty: 60 0RF docusate sodium 100 mg Capsule 100 mg PO BID Qty: 30 0RF ondansetron 4 mg Tablet,Disintegrating 4 mg PO Q4HR PRN (Reason: Nausea) Qty: 10 0RF triamcinolone acetonide 0.1 % cream 1 applic topical .bid prn Qty: 30 0RF Continued latanoprost 0.005 % drops 1 drp EYE-BOTH ONCE PM losartan 25 mg tablet 25 mg PO DAILY Qty: 60 3RF Discontinued aspirin 81 mg tablet,delayed release (DR/EC) 81 mg PO DAILY Follow up/Referrals: Shruthi Buckley DO [Primary Care Provider, Family Practice] Diet/Activity/Treatments Diet: Regular Liquid consistency: Normal/Thin Food texture: Regular [facility] Reason for rehabilitation: Post-operative therapy Rehab type: Physical therapy, Occupational therapy and Speech therapy Visit Report/Discharge Packet Stand Alone Forms: Patient Portal/API Discharge Data Primary Care Provider: Shruthi Buckley
--- NOTE | 2024-09-20 10:45 | PT.IPTN ---
Current Diagnoses Displaced intertrochanteric fracture of left femur, initial encounter for closed fracture (09/16/24) Surgery Performed Operation Date: 09/17/24 09:30 Actual Procedures p Intramedullary Nailing Femur(Left) - Basia Cueto, DO Physical Therapy Treatment Note M2 PT-IP Current Condition Start: 09/18/24 12:18 Freq: NEEDED Status: Active Protocol: Document 09/18/24 10:35 AB (Rec: 09/18/24 12:33 AB [id number]) Physical Therapy Current Condition Current Condition Evaluation Date 09/18/24 Treatment Diagnosis fall; L hip fx s/p ORIF; difficulty in walking Onset Date 09/16/24 M3 PT-IP Subjective Start: 09/18/24 12:18 Freq: NEEDED Status: Active Protocol: Document 09/20/24 09:28 MB (Rec: 09/20/24 10:44 MB Desktop) Subjective Physical Therapy Visit Type Type Treatment Note Visit Start Time 09:28 Visit Stop Time 09:44 Number of LOGISTICAL ENGINEER Visits 0 Physical Therapy Visit Comments Patient Comments Pt reports no pain bothering him in bed and PT particularly asks about left hip, left elbow and head. 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 Therapy Pain Assessment Pain When Pain Assessed After Treatment Pain Present Pain Present Pain Reported Location Left Knee Intensity 6 Pain Management Modification of Treatment,Re-positioning Techniques M4 PT-IP Mobility and Gait Start: 09/18/24 12:18 Freq: NEEDED Status: Active Protocol: Document 09/20/24 09:28 MB (Rec: 09/20/24 10:44 MB Desktop) PT-Bed Mobility Assessment Supine to Sit Supine to Sit Contact Guard Assistance,1 Person Assistance,Head of Bed Elevated,Bedrails Scooting Scooting to Edge of Standby Assistance Bed PT-Transfer Assessment Sit to and From Stand Sit to and from Moderate Assistance,1 Person Assistance,Use of Upper Stand Extremities Equipment Transfer Assistive Gait Belt,Front Wheeled Walker Device Transfers Transfer Destination Bed Transfer Technique Stand Pivot Transfer Ability Level of Assist Moderate Assistance,1 Person Assistance,Use of Upper Extremities Comments Mobility Comments PT places gait belt around bottom of left foot for pt to use to help move left leg to the EOB, HOB increased and use of rails. PT raises bottom of bed rail once he is sitting EOB to allow use of left hand to help scoot hips to EOB. Cues to push up from the bed to stand. Once standing, pt keeps left knee flexed and does not weight bear or step through the left leg despite encouragement, stand pivot on the right foot to the right to the chair. PT-Balance Assessment Sitting Balance and Reactions Static Sitting Good Balance Ability Dynamic Sitting Good Balance Ability Standing Balance and Reactions Static Standing Fair Balance Ability Dynamic Standing Poor Balance Ability Device Used FWW M5 PT-IP Objective Assessments Start: 09/18/24 12:18 Freq: NEEDED Status: Active Protocol: Document 09/19/24 12:26 DLM (Rec: 09/19/24 12:43 DLM Desktop) Orientation Orientation/Cognition Level of Alertness Alert Orientation Name,Age,Birthday,Month,Date,Year,Day of Week,Place, Situation Language Function Hard of Hearing Ability Safety Awareness Understands Safety Issues Coordination Assessment Gross Coordination Gross Coordination WNL Other Assessments Other Other Assessments he reports a hx of cramping in thighs that caused him to stop riding his bicycle. He underwent testing but no reason for the severe cramping was found. M6 PT-IP Treatment Start: 09/18/24 12:18 Freq: NEEDED Status: Active Protocol: Document 09/20/24 09:28 MB (Rec: 09/20/24 10:44 MB Desktop) Physical Therapy Treatment Exercises Exercises Ankle Pumps Education Education Provided Weight Bearing Status,Safety M7 PT-IP Assessment and Plan Start: 09/18/24 12:18 Freq: NEEDED Status: Active Protocol: Document 09/20/24 09:28 MB (Rec: 09/20/24 10:44 MB Desktop) PT Summary Assessment and Plan Potential Rehabilitation Fair Potential Status of Condition Evolving at Evaluation Summary Impairments Pain,ROM,Strength,Balance,Cognition,Bed Mobility, Transfers,Gait,Activity Tolerance Progress Towards Slow Progress due to Pain,Slow Progress due to Activity Goals Tolerance Assessment Summary Pt improves with bed mobility with encouragement and does not progress with WB through left leg with standing or attempted stepping with RW today. His LLE is edematous and he c/o left knee pain. Goals Bed Mobility Goal Independent Transfer Goal Minimal Assistance,Front Wheeled Walker Gait Goal Minimal Assistance,Front Wheel Walker Gait Distance 50 Days to Meet Goals 5 Frequency of Treatment Frequency Of Once a Day Treatment Treatment Plan Physical Therapy Bed Mobility Training,Transfer Training,Gait Training, Treatment Plan Therapeutic Exercise,Balance Retraining,Post Op Education,Discharge Planning,Hot or Cold Pack, Neuromuscular Re-ed,Manual Therapy Weight Bearing Status Weight Bearing Weight Bear as Tolerated Status Allowed Weight left LE s/p femur ORIF Bearing Amount ( enter % or #) (%) Recommendations To Nursing Amount of Assist 1 Person Assist Needed Discharge Recommendations PT Discharge SNF Rehab Recommendations Transportation Needs Wheelchair/Cabulance at Discharge - PT assist 1
--- NOTE | 2024-09-20 11:05 | CM.DPNOTE ---
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 Patient remains aware and agreeable to plan. Emailed SNF orders, DC Summary, med list and Rx with PASRR to August at . Bedside RN calling report. Plan: Discharge to [facility] SNF via wandrea QUINTANILLA
[2024-09-20] MEDS: CYCLOBENZAPRINE 10 MG TABLET PO (11:12)
--- NOTE | 2024-09-20 11:32 | PC.NURSE ---
Discharge Note Patient A&O, VSS, RA, medicated prior to discharge with PO [place] and Flexeril. Patient agreeable to discharge plan. Dressing changed prior to discharge per VTORB of Dr Cueto, updated pictures taken and uploaded. Itchy rash also noted per patient and PT. Skin wiped down with wash cloth, MD Burns informed and new prescription for ointment, pictures taken and uploaded. TELE/PIV discontinued. Patient able to dress self and pack all belongings with assistance. Report given to receiving facility, all questions/concerns addressed. Patient taken via wheelchair by facility staff.
== END 2024-09-20 11:45 | DRG 481 ==
LOC: ED 14:53 → AC 15:06
PROVIDERS: Hospitalist; Orthopaedic Surgery; Physician Assistant Surgical; Admitting Provider Family Medicine; Emergency Provider Emergency Medicine; PCP Family Medicine; Referring Provider Emergency Medicine; Visit Provider Family Medicine
PROC: 0QS706Z Reposition Left Upper Femur with Intramedullary Internal Fixation Device, Open Approach (ICD-10-PCS; CPT 27245; principal; 2024-09-17 09:30)
DX: S72.142A Displaced intertrochanteric fracture of left femur, initial encounter for closed fracture (principal); S06.0XAA Concussion with loss of consciousness status unknown, initial encounter; S01.01XA Laceration without foreign body of scalp, initial encounter; R00.1 Bradycardia, unspecified; I10 Essential (primary) hypertension; M62.838 Other muscle spasm; L29.9 Pruritus, unspecified; H40.9 Unspecified glaucoma; R55 Syncope and collapse; F10.90 Alcohol use, unspecified, uncomplicated; S50.312A Abrasion of left elbow, initial encounter; W10.9XXA Fall (on) (from) unspecified stairs and steps, initial encounter; Y90.0 Blood alcohol level of less than 20 mg/100 ml; Z87.891 Personal history of nicotine dependence; Z23 Encounter for immunization
CPT/HCPCS: 12002; 36415; 70450; 71045; 72125; 73502; 73560; 76000; 80048; 80053; 80320; 83605; 83690; 85014; 85018; 85025; 85027; 85610; 85730; 86850; 86900; 86901; 90471; 93005; 93010; 94760; 96374; 96375; 96376; 97110; 97163; 97165; 97530; 97535; 99284; 90715; C1713; J0131; J0690; J1171; J1885; J2270; J2405; J2704

== ENCOUNTER → 2024-09-25 14:36 | Outpatient (CLI) | payer MEDICARE, OTHER, SELFPAY ==
[2024-09-16 15:19] VITALS: BMI 23.1
--- NOTE | 2024-09-25 | DI.RAD.S_ITS ---
PROCEDURE: XR KNEE LT 3V INDICATIONS: SUSPECTED INJURY TECHNIQUE: 4 views of the knee were acquired. COMPARISON: [facility], [place], XR KNEE LT 1TO2V, 09/17/2024, 8:24. FINDINGS: Bones: Stable appearance of hardware status post partial medial tibiofemoral compartment arthroplasty without evidence of complication. No fractures or dislocations. No suspicious bony lesions. Soft tissues: No joint effusion. No suspicious soft tissue calcifications. IMPRESSION: No evidence of acute osseous abnormality or hardware complication status post partial medial tibiofemoral compartment arthroplasty. Dictated by: Prateek Hughes M.D. on 09/27/2024 at 18:43 Approved by: Prateek Hughes M.D. on 09/27/2024 at 18:45
== END ==
PROVIDERS: PCP Family Medicine; Referring Provider Family Medicine; Visit Provider Hospitalist
DX: S89.92XA Unspecified injury of left lower leg, initial encounter (principal); M25.462 Effusion, left knee; Z96.652 Presence of left artificial knee joint
CPT/HCPCS: 73562

== ENCOUNTER → 2024-10-15 06:30 | Outpatient (CLI) | payer MEDICARE, OTHER, SELFPAY ==
[2024-09-16 15:19] VITALS: BMI 23.1
--- NOTE | 2024-10-15 06:31 | DI.ECHO.S_ITS ---
[place] +---------+ Hospital : : [id number] : : [place] : : [id number] : : Phone: [phone] Echocardiogram Report + + :Name: JAVY ALATORRE Study Date: 10/15/2024 Height: 71 in : :[facility] ReadingLocation: Weight: 153 lb : : Gender: Male BSA: 1.9 m2 : :: 1940 Age: 84 yrs BP: 160/88 mmHg: :Reason For Study: SYNCOPE/ BRADYCARDIA : :Ordering Physician: VAUGHN, : :STEVEN Performed By: Katiana Adams : :Referring: STEVEN MENDES : + + Interpretation Summary Normal LV size and systolic function. LVEF is 60 to 65%. RV measures is moderately dilated. Normal RV systolic function. Left atrium is slightly dilated. Mild mitral regurgitation. Mild pulmonary hypertension. Other findings as below. Procedure: A two-dimensional transthoracic echocardiogram with color flow and Doppler was performed. The study quality was technically adequate. There is no prior echocardiogram noted for this patient. The patient was in a bradycardic rhythm during the exam. Left Ventricle: The left ventricle is normal in size and wall thickness. The ejection fraction is estimated to be 60-65%. Normal diastolic function. Right Ventricle: The right ventricle is moderately dilated. The right ventricular systolic function is normal. Atria: The left atrium is moderately dilated. Right atrial size is normal. The atrial septum is aneurysmal. Mitral Valve: The mitral valve leaflets appear to open well. There is mild mitral annular calcification. There is mild mitral regurgitation. Aortic Valve: There is mild aortic valve sclerosis. The aortic valve is trileaflet. There is no hemodynamically significant valvular aortic stenosis. There is no aortic regurgitation. Tricuspid Valve: The tricuspid valve leaflets are thin and pliable. There is mild tricuspid regurgitation. The right ventricular systolic pressure is estimated to be at least 33 mmHg based on an estimated right atrial pressure of 8 mm Hg. Pulmonic Valve: The pulmonic valve leaflets are thin and pliable; valve motion is normal. There is no pulmonic valvular regurgitation. Great Vessels: The aortic root is normal size. The dimensions of the ascending aorta are normal. The IVC is dilated (diameter is greater than 2.1 cm) yet it collapses greater than 50% with a sniff. This suggests a right atrial pressure of 8 mm Hg. Pericardium/ Pleura There is no pericardial effusion. There is no pleural effusion. MMode/2D Measurements & Calculations LVIDd: 5.5 cm LVOT diam: 2.2 cm LVIDs: 3.5 cm Ao root diam: 3.5 cm FS: 36.3 % asc Aorta Diam: 3.5 cm IVSd: 1.1 cm Ao Arch Diam (Prox Trans): 2.5 cm LVPWd: 0.71 cm LV mccray. diameter/BSA (cm/m^2): 2.9 LV sys. diameter/BSA (cm/m^2): 1.8 LA A2 area: 28.4 cm2 RA long axis: 4.4 cm LA A4 area: 22.3 cm2 RA area: 14.9 cm2 LA length (vol): 5.7 cm RA vol: 42.8 ml LA vol: 93.9 ml RA : 22.8 ml/m2 LA vol index: 49.9 ml/m2 IVC diam: 2.1 cm RVD1 (basal): 5.4 cm RVD2 (mid): 4.7 cm TAPSE: 2.2 cm Doppler Measurements & Calculations Ao V2 max: 155.7 cm/sec LVOT Max Alexander: 93.2 cm/sec Ao V2 mean: 106.6 cm/sec LV V1 max P.5 mmHg Ao max P.7 mmHg LV V1 VTI: 25.0 cm Ao mean P.0 mmHg CLIFTON(I,D): 2.2 cm2 Ao V2 VTI: 42.6 cm CLIFTON(V,D): 2.2 cm2 sev ratio: 0.59 CLIFTON indexed to BSA (cm^2/m^2): 1.1 MV E max alexander: 92.1 cm/sec TR max alexander: 243.9 cm/sec MV A max alexander: 85.3 cm/sec TR max P.8 mmHg MV E/A: 1.1 PA V2 max: 75.7 cm/sec Med Peak E' Alexander: 7.8 cm/sec PA V2 mean: 50.9 cm/sec E/E' med: 11.8 PA mean P.2 mmHg Lat Peak E' Alexander: 10.7 cm/sec PA pr(Accel): 30.2 mmHg E/E' lat: 8.6 E/e' average: 10.2 MV dec time: 0.23 sec [facility] 91.6 ml Reading Physician:02:10 PM
--- NOTE | 2024-10-15 06:32 | DI.CT.S_ITS ---
PROCEDURE: CT KNEE LEFT WITHOUT CON INDICATIONS: left knee pain TECHNIQUE: Noncontrast 1-1.5 mm axial sections acquired from the mid-patella to the proximal tibia, with coronal and sagittal reformats. For radiation dose reduction, the following was used: automated exposure control, adjustment of mA and/or kV according to patient size. COMPARISON: [facility], [place], XR KNEE LT 3V, 09/25/2024, 14:52. FINDINGS: Image quality: Excellent. 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 Hardware components are in expected positions without signs of loosening. Mild joint space narrowing is seen in the lateral femorotibial and patellofemoral compartments with small marginal osteophytes. There is generalized bony demineralization. No acute osseous fracture is seen. Small suprapatellar enthesophytes. Soft tissues: Moderate joint effusion. No significant medial popliteal cyst. The visualized musculature is age-appropriate in bulk. Arterial vascular calcifications are present. IMPRESSION: 1. 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 No acute hardware complication or acute osseous abnormality is seen. 2. Mild lateral and anterior compartment osteoarthrosis. 3. Moderate joint effusion. Approved by: Stalin Herr M.D. on 10/15/2024 at 21:34
== END ==
LOC: ECHO 06:31
PROVIDERS: PCP Family Medicine; Referring Provider Family Medicine; Visit Provider Family Medicine
DX: I08.3 Combined rheumatic disorders of mitral, aortic and tricuspid valves (principal); I27.20 Pulmonary hypertension, unspecified; R55 Syncope and collapse; R00.1 Bradycardia, unspecified; M25.562 Pain in left knee; M25.462 Effusion, left knee; M17.12 Unilateral primary osteoarthritis, left knee; Z96.652 Presence of left artificial knee joint
CPT/HCPCS: 73700; 93306

== ENCOUNTER → 2024-10-19 07:47 | Outpatient (CLI) | payer MEDICARE, OTHER, SELFPAY ==
[2024-09-16 15:19] VITALS: BMI 23.1
== END ==
LOC: CAR 07:48
PROVIDERS: PCP Family Medicine; Referring Provider Family Medicine; Visit Provider Family Medicine
DX: R00.1 Bradycardia, unspecified (principal); R55 Syncope and collapse
CPT/HCPCS: 93246